=== PATIENT | male | born 1975 | race Caucasian/White ===

== ENCOUNTER 2018-07-27 20:04 | Inpatient (IN) | payer OTHER, SELFPAY ==
--- NOTE | 2018-07-27 20:05 | ED_ITS ---
HPI - General Adult General Chief complaint: Nausea/Vomiting/Diarrhea Stated complaint: Vomiting Time Seen by Provider: 07/27/18 20:05 Source: patient and EMS Mode of arrival: EMS Limitations: no limitations History of Present Illness HPI narrative: Patient is a 43-year-old male. Insulin-dependent type 2 diabetic. Was diagnosed 3 years ago with this. Patient states yesterday he generally started to not feel very well. States that he did have quite a bit of nausea but was able to resist vomiting. He stated that he knew that if he started vomiting at would continue to where he could stop. He states that he has been in DKA 2 times in the past. He stated that this morning he could no longer resist the urge to vomit and started vomiting. States that has continued since then. Has had black colored vomiting. States he does take nonsteroidal anti-inflammatories on a regular basis. No current alcohol use. Patient states that he feels like he is in DKA. Related Data Home Medications Medication Instructions Recorded Confirmed insulin aspart U-100 [Novolog 07/27/18 Flexpen U-100 Insulin] insulin glargine [Lantus Solostar 07/27/18 U-100 Insulin] metformin 1,000 mg PO BID 07/27/18 07/27/18 metoclopramide HCl 20 mg PO QACHS 07/27/18 07/27/18 Allergies Allergy/AdvReac Type Severity Reaction Status Date / Time No Known Drug Allergies Allergy Verified 07/27/18 20:21 Review of Systems Constitutional Denies chills, Reports fatigue, Denies fever(s), Reports headache(s), Denies lethargy, Denies malaise and Reports weakness Eyes Denies blurry vision and Denies diplopia ENT Ears, Nose, Mouth, and Throat: Reports headache(s), Denies disequilibrium, Denies sore throat and Denies throat swelling Cardiovascular Denies chest pain, Reports rapid heart rate, Denies edema, Denies palpitations and Denies dyspnea Respiratory Denies cough, Denies dyspnea and Denies wheezing Gastrointestinal Gastrointestinal: Reports abdominal pain, Denies change in stool character, Denies constipation, Reports dyspepsia, Denies diarrhea, Reports nausea and Reports vomiting Genitourinary Denies dysuria Musculoskeletal Reports myalgias and Denies arthralgias Integumentary/Breasts Denies lesions and Denies rash Neurologic Denies behavioral changes, Denies confusion, Reports headache(s), Denies disequilibrium and Reports weakness Psychiatric Denies behavioral changes and Denies confusion Endocrine Reports fatigue and Denies palpitations Hematologic/Lymphatic Comments: Not on anticoagulation Allergic/Immunologic Denies throat swelling and Denies wheezing PFSH Medical History Diabetes (Acute) Surgical History No pertinent past surgical history (Acute) Social History lives independently: Yes Exam Initial Vital Signs Initial Vital Signs: Vital Signs Temperature 97.0 F L 07/27/18 20:21 Pulse Rate 137 H 07/27/18 20:21 Respiratory Rate 32 H 07/27/18 20:21 Blood Pressure 134/96 H 07/27/18 20:21 Pulse Oximetry 96 07/27/18 20:21 Const General: in distress, diaphoretic and ill appearing Orientation: alert, awake and oriented x3 HENMT Head: normal to inspection and normocephalic Chest Chest: normal inspection of the chest Resp Effort & Inspection: normal respiratory effort Auscultation: clear to auscultation bilaterally Cardio Rate: tachycardic Rhythm: regular rhythm Pulses: radial pulses present GI Inspection: non-distended Palpation: soft, No firm and tender (Diffuse tenderness) Back/Spine/Pelvis Back: No CVA tenderness Skin Lesions: no lesions Rashes: no rashes Neuro General: alert, awake and oriented x3 Cognition: normal cognition Speech: speech normal Motor: muscle tone normal throughout Sensory Exam: no sensory deficits noted Extrem General: normal to inspection, capillary refill normal and No edema Psych Appearance: grossly normal and disheveled Course Orders Ordered: ED Orders 07/27/18 20:23 Complete Blood Count AUTO DIFF Stat Comprehensive Metabolic Panel Stat Ethanol (ETOH) Stat Ketones (Beta-Hydroxybutyrate) Stat Lactate (Lactic Acid) Stat Lipase Stat Magnesium Stat Phosphorous Stat Procalcitonin Stat Type and Screen Stat 07/27/18 20:25 Venous Blood Gas Stat 07/27/18 22:11 CT abdomen pelvis w con Stat 07/27/18 22:14 BMP [Basic Metabolic Panel] Stat Complete Blood Count AUTO DIFF Stat 07/27/18 23:03 Glucose Stat Pantoprazole Sodium 80 mg/ (Sodium Chloride) 100 mls @ 10 mls/hr IV CONT DARSHAN Last Admin: 07/27/18 20:42 Dose: 8 mg/hr, 10 mls/hr Sodium Chloride (Normal Saline 0.9%) 1,000 mls @ 150 mls/hr IV CONT DARSHAN Last Admin: 07/27/18 21:10 Dose: 150 mls/hr Insulin Human Regular 100 unit (/ Sodium Chloride) 100 mls @ 6 mls/hr IV TITRATE DARSHAN; Protocol Last Admin: 07/27/18 23:25 Dose: 3.4 ml/hr, 3.4 mls/hr Titration: 07/27/18 23:25 Dose: 0 mls/hr Titration: 07/27/18 23:03 Dose: 0 mls/hr Admin: 07/27/18 21:31 Dose: 10.2 ml/hr, 10.2 mls/hr Discontinued Medications Hydromorphone HCl (Dilaudid) 0.5 mg IV NOW ONE Stop: 07/27/18 23:04 Last Admin: 07/27/18 23:08 Dose: 0.5 mg Sodium Chloride (Normal Saline 0.9%) 1,000 mls @ 1,000 mls/hr IV BOLUS ONE Stop: 07/27/18 21:06 Last Infusion: 07/27/18 21:30 Dose: 0 mls/hr Admin: 07/27/18 20:31 Dose: 1,000 mls/hr Pantoprazole Sodium 80 mg/ (Sodium Chloride) 100 mls @ 300 mls/hr IV NOW ONE Stop: 07/27/18 20:31 Last Infusion: 07/27/18 21:05 Dose: 0 mls/hr Admin: 07/27/18 20:32 Dose: 300 mls/hr Ibuprofen (Advil) 800 mg PO NOW ONE Stop: 07/27/18 22:41 Last Admin: 07/27/18 22:43 Dose: Morphine Sulfate (Morphine) 4 mg IV NOW ONE Stop: 07/27/18 21:15 Last Admin: 07/27/18 21:24 Dose: 4 mg Ondansetron HCl (Zofran) 4 mg IV NOW ONE Stop: 07/27/18 20:08 Last Admin: 07/27/18 20:32 Dose: 4 mg Vital Signs - 8 hr 07/27/18 20:21 07/27/18 21:05 07/27/18 22:08 Temperature 97.0 F L Pulse Rate 137 H 119 H 138 H Respiratory Rate 32 H 23 18 Blood Pressure 134/96 H Blood Pressure [Right Arm] 133/88 141/74 H Pulse Oximetry 96 96 97 07/27/18 22:30 07/27/18 23:49 Temperature Pulse Rate 144 H 138 H Respiratory Rate 19 20 Blood Pressure Blood Pressure [Right Arm] 157/84 H 126/85 Pulse Oximetry 98 98 Medical Decision Making Lab Data Lab results reviewed: Yes I reviewed the patient's lab results. Result diagrams: 07/27/18 22:14 07/27/18 23:03 Lab Results 07/27/18 07/27/18 07/27/18 Range/Units 20:23 20:23 20:23 WBC 14.9 H (4.5-11.0) X10^3/uL RBC 5.10 (4.5-5.9) X10^6/uL Hgb 15.7 (13.5-17.5) g/dL Hct 47.3 (41-53) % MCV 92.6 (80-100) fL MCH 30.8 (26-34) PG MCHC 33.3 (30-36) % RDW 12.9 (11.6-14.8) % Plt Count 623 H (150-400) X10^3/uL Neut % (Auto) 79.3 H (50-75) % Lymph % (Auto) 15.7 L (25-40) % [place] % (Auto) 4.1 (3-14) % Eos % (Auto) 0.0 L (2-4) % Baso % (Auto) 0.9 (0-2) % Neut # (Auto) 41716 H (0315-0111) /uL VBG pH (7.33-7.43) VBG pCO2 (45-50) mmHg VBG pO2 (35-45) mmHg VBG HCO3 (23-28) mmol/L VBG Total CO2 (24-29) mmol/L VBG O2 Saturation (70-75) % VBG Base Excess (0-4) mmol/L Sodium 134 L (137-145) mmol/L Potassium 5.0 (3.4-5.1) mmol/L Chloride 95 L (98-107) mmol/L Carbon Dioxide < 5 L* (22-32) mmol/L BUN 23 H (9-20) mg/dL Creatinine 0.90 (0.66-1.25) mg/dL Estimated GFR > 60.0 (>60) mL/min BUN/Creatinine Ratio 25.6 H (6-22) Glucose 550 H* (70-100) mg/dL Lactate (0.7-2.1) mmol/L Calcium 9.3 (8.4-10.2) mg/dL Phosphorus 7.8 H (2.5-4.5) mg/dL Magnesium 2.2 (1.6-2.3) mg/dL Total Bilirubin 0.3 (0.2-1.3) mg/dL AST 16 L (17-59) IU/L ALT 13 L (21-72) IU/L Alkaline Phosphatase 107 (38-126) U/L Total Protein 7.2 (6.3-8.2) g/dL Albumin 4.2 (3.5-5.0) g/dL Globulin 3.0 (1.7-4.1) g/dL Albumin/Globulin Ratio 1.4 (1.0-2.8) Lipase 131 (23-300) U/L Procalcitonin 0.10 (<0.5) ng/mL Ethyl Alcohol < 10 mg/dL Ketones 10.15 H (<0.27) mmol/L Blood Type Antibody Screen 07/27/18 07/27/18 07/27/18 Range/Units 20:23 20:23 20:25 WBC (4.5-11.0) X10^3/uL RBC (4.5-5.9) X10^6/uL Hgb (13.5-17.5) g/dL Hct (41-53) % MCV (80-100) fL MCH (26-34) PG MCHC (30-36) % RDW (11.6-14.8) % Plt Count (150-400) X10^3/uL Neut % (Auto) (50-75) % Lymph % (Auto) (25-40) % [place] % (Auto) (3-14) % Eos % (Auto) (2-4) % Baso % (Auto) (0-2) % Neut # (Auto) (0149-6987) /uL VBG pH 7.02 L* (7.33-7.43) VBG pCO2 17.7 L (45-50) mmHg VBG pO2 55 H (35-45) mmHg VBG HCO3 5 L (23-28) mmol/L VBG Total CO2 5 L (24-29) mmol/L VBG O2 Saturation 73 (70-75) % VBG Base Excess -26.0 L (0-4) mmol/L Sodium (137-145) mmol/L Potassium (3.4-5.1) mmol/L Chloride (98-107) mmol/L Carbon Dioxide (22-32) mmol/L BUN (9-20) mg/dL Creatinine (0.66-1.25) mg/dL Estimated GFR (>60) mL/min BUN/Creatinine Ratio (6-22) Glucose (70-100) mg/dL Lactate 3.7 H (0.7-2.1) mmol/L Calcium (8.4-10.2) mg/dL Phosphorus (2.5-4.5) mg/dL Magnesium (1.6-2.3) mg/dL Total Bilirubin (0.2-1.3) mg/dL AST (17-59) IU/L ALT (21-72) IU/L Alkaline Phosphatase (38-126) U/L Total Protein (6.3-8.2) g/dL Albumin (3.5-5.0) g/dL Globulin (1.7-4.1) g/dL Albumin/Globulin Ratio (1.0-2.8) Lipase (23-300) U/L Procalcitonin (<0.5) ng/mL Ethyl Alcohol mg/dL Ketones (<0.27) mmol/L Blood Type A Negative Antibody Screen Negative 07/27/18 07/27/18 07/27/18 Range/Units 22:14 22:14 23:03 WBC 15.1 H (4.5-11.0) X10^3/uL RBC 4.95 (4.5-5.9) X10^6/uL Hgb 15.0 (13.5-17.5) g/dL Hct 45.2 (41-53) % MCV 91.3 (80-100) fL MCH 30.3 (26-34) PG MCHC 33.1 (30-36) % RDW 12.8 (11.6-14.8) % Plt Count 577 H (150-400) X10^3/uL Neut % (Auto) 89.3 H (50-75) % Lymph % (Auto) 6.4 L (25-40) % [place] % (Auto) 3.6 (3-14) % Eos % (Auto) 0.1 L (2-4) % Baso % (Auto) 0.6 (0-2) % Neut # (Auto) 67254 H (4663-7321) /uL VBG pH (7.33-7.43) VBG pCO2 (45-50) mmHg VBG pO2 (35-45) mmHg VBG HCO3 (23-28) mmol/L VBG Total CO2 (24-29) mmol/L VBG O2 Saturation (70-75) % VBG Base Excess (0-4) mmol/L Sodium 136 L (137-145) mmol/L Potassium 5.4 H (3.4-5.1) mmol/L Chloride 100 (98-107) mmol/L Carbon Dioxide 5 L* (22-32) mmol/L BUN 23 H (9-20) mg/dL Creatinine 0.90 (0.66-1.25) mg/dL Estimated GFR > 60.0 (>60) mL/min BUN/Creatinine Ratio 25.6 H (6-22) Glucose 541 H* 305 H D (70-100) mg/dL Lactate (0.7-2.1) mmol/L Calcium 9.1 (8.4-10.2) mg/dL Phosphorus (2.5-4.5) mg/dL Magnesium (1.6-2.3) mg/dL Total Bilirubin (0.2-1.3) mg/dL AST (17-59) IU/L ALT (21-72) IU/L Alkaline Phosphatase (38-126) U/L Total Protein (6.3-8.2) g/dL Albumin (3.5-5.0) g/dL Globulin (1.7-4.1) g/dL Albumin/Globulin Ratio (1.0-2.8) Lipase (23-300) U/L Procalcitonin (<0.5) ng/mL Ethyl Alcohol mg/dL Ketones (<0.27) mmol/L Blood Type Antibody Screen Point of Care Testing Glucose POC 413 Urine Dip Bedside Urine Glucose 1000 mg/dl Bedside Urine Bilirubin - Negative Bedside Urine Ketone +++ 80 Urine Specific [employer] 1.030 Bedside Urine Occult Blood +/- Bedside Urine pH 5.5 Bedside Urine Protein + 30 Bedside Urine Urobilinogen - Negative Bedside Urine Nitrite - Negative Bedside Urine Leukocytes - Negative Esterase Point of care testing: Point of Care Testing Glucose POC 413 Urine Dip Bedside Urine Glucose 1000 mg/dl Bedside Urine Bilirubin - Negative Bedside Urine Ketone +++ 80 Urine Specific [employer] 1.030 Bedside Urine Occult Blood +/- Bedside Urine pH 5.5 Bedside Urine Protein + 30 Bedside Urine Urobilinogen - Negative Bedside Urine Nitrite - Negative Bedside Urine Leukocytes - Negative Esterase Imaging Data CT scan - abdomen: Radiologist's impression: Stomach is somewhat distended with fluid contents this could be due to gastroparesis versus early partial gastric outlet obstruction. Circumferential wall thickening of the distal soft just may be due to esophagitis. Other etiologies not excluded. Follow-up suggested. Nonobstructing bilateral renal calculi a as described. Normal appendix. MDM Narrative Medical decision making narrative: Patient currently in DKA. Upon arrival anion gap 34. Potassium unremarkable. Was started on an insulin drip after an insulin bolus per the DKA protocol at this hospital. Patient has had vomiting of coffee-ground emesis. Protonix was started. I suspect this is secondary to his NSAID use and also his vomiting. Patient's symptoms improved with Zofran. No fevers. Patient given fluids here in the ER. Patient was also acidotic. Did not start a bicarb drip. I discussed the case with Dr. Hernandez with General surgery who states that he would evaluate the patient as an inpatient for his probable upper GI bleed. Repeat labs shows that his glucose was decreasing greater than 100 an hour. The insulin drip was slowed. Will continue to monitor. CT scan was ordered per request of the admitting provider. Shows what appears to be in his situation a gastroparesis. Patient has not vomited since receiving anti nausea medicine here in the ER. Night hospitalist will admit the patient for continued evaluation and treatment. Discussed the admission with the patient who expressed understanding and agreement this plan. Critical Care Time Critical Care Time: Yes Total Critical Care Time: 45 Attestation: The high probability of a clinically significant, sudden or life threatening deterioration of the 45 system(s) required my full and direct attention, intervention and personal management. The aggregate critical care time was 45 minutes. This time is in addition to time spent performing reported procedures but includes the following: [] Data Review and interpretation [] Patient assessment and monitoring of vital signs [] Documentation [] Medication orders and management Discharge Plan Departure Patient Disposition: Admitted As Inpatient Clinical Impression: DKA, type 2, Acute upper GI bleed, Vomiting, Tachycardia, Diabetes Admit Date/Time: 07/28/18 00:01 Admit Provider: Dell Gold
[2018-07-27 20:21] VITALS: BP 134/96; PULSE 137; RESP 32; TEMP 36.1; O2SAT 96
[2018-07-27] MEDS: SODIUM CHLORIDE 0.9% 1,000 ML 1000 ML IV (20:31)
[2018-07-27] MEDS: ONDANSETRON 4 MG/2 ML INJ IV (20:32)
[2018-07-27] MEDS: PANTOPRAZOLE 80 MG in SODIUM CHLORIDE 0.9% 100 ML 300 ML IV (20:32)
[2018-07-27 20:37] LABS: HCO3 VBG 5 mmol/L (23-28); Oxygen Saturation VBG 73 % (70-75); PCO2 VBG 17.7 mmHg (45-50); PO2 VBG 55 mmHg (35-45); Total CO2 VBG 5 mmol/L (24-29)
[2018-07-27 20:38] LABS: pH VBG 7.02 (7.33-7.43)
[2018-07-27] MEDS: PANTOPRAZOLE 80 MG in SODIUM CHLORIDE 0.9% 100 ML 10 ML IV (20:42)
[2018-07-27 20:44] LABS: HEMOLYSIS < 15 (0-50)
[2018-07-27 20:45] LABS: Lactate (Lactic Acid) 3.7 mmol/L (0.7-2.1)
[2018-07-27 20:46] LABS: Basophils Percent Auto 0.9 % (0-2); Platelet Count 623 X10^3/uL (150-400)
[2018-07-27 20:50] LABS: Alanine Aminotransferase 13 IU/L (21-72); Albumin 4.2 g/dL (3.5-5.0); Albumin Globulin Ratio 1.4 (1.0-2.8); Alkaline Phosphatase 107 U/L (38-126); Aspartate Aminotransferase 16 IU/L (17-59); BUN Creatinine Ratio 25.6 (6-22); Bilirubin Total 0.3 mg/dL (0.2-1.3); Blood Urea Nitrogen 23 mg/dL (9-20); Calcium 9.3 mg/dL (8.4-10.2); Chloride 95 mmol/L (98-107); Estimated Glomerular Filt Rate > 60.0 mL/min (>60); Ethanol (ETOH) < 10 mg/dL; Lipase 131 U/L (23-300); Magnesium 2.2 mg/dL (1.6-2.3); Phosphorous 7.8 mg/dL (2.5-4.5); Sodium 134 mmol/L (137-145); Total Protein 7.2 g/dL (6.3-8.2)
[2018-07-27 20:51] LABS: Add Manual Diff / Slide Review NO; Hematocrit 47.3 % (41-53); Hemoglobin 15.7 g/dL (13.5-17.5); Lymphocytes Percent Auto 15.7 % (25-40); Mean Corpuscular HGB Conc 33.3 % (30-36); Mean Corpuscular Hemoglobin 30.8 PG (26-34); Mean Corpuscular Volume 92.6 fL (80-100); Monocytes Percent Auto 4.1 % (3-14); Neutrophils Absolute Auto 11800 /uL (1500-7000); Neutrophils Percent Auto 79.3 % (50-75); Red Cell Distribution Width 12.9 % (11.6-14.8); White Blood Cell Count 14.9 X10^3/uL (4.5-11.0)
[2018-07-27 21:04] LABS: Ketones (Beta-Hydroxybutyrate) 10.15 mmol/L (<0.27)
[2018-07-27 21:05] VITALS: BP 133/88; PULSE 119; RESP 23; O2SAT 96
[2018-07-27 21:06] LABS: Carbon Dioxide < 5 mmol/L (22-32); Glucose 550 mg/dL (70-100)
[2018-07-27] MEDS: SODIUM CHLORIDE 0.9% 1,000 ML 150 ML IV (21:10)
[2018-07-27] MEDS: MORPHINE 4 MG/ML INJ IV (21:24)
[2018-07-27] MEDS: INSULIN REGULAR, HUMAN 100 UNIT in SODIUM CHLORIDE 0.9% 100 ML 10.2 ML IV (21:31)
[2018-07-27 22:08] VITALS: BP 141/74; PULSE 138; RESP 18; O2SAT 97
--- NOTE | 2018-07-27 22:11 | DI.CT.S_ITS ---
PROCEDURE: CT ABDOMEN PELVIS W CON INDICATIONS: Vomiting blood in diabetic keto-acidosis TECHNIQUE: After the administration of intravenous contrast, 5 mm thick sections acquired from the diaphragm to the symphysis. 5 mm coronal and sagittal reformats were acquired. For radiation dose reduction, the following was used: automated exposure control, adjustment of mA and/or kV according to patient size. COMPARISON: None. FINDINGS: Image quality: Excellent. ABDOMEN: Lung bases: Lung bases are clear. Heart size is normal. Mild concentric thickening at the gastroesophageal junction. Solid organs: Liver is normal in size and enhancement. Gallbladder is normal. Biliary system is non dilated. Pancreas enhances normally. Spleen is normal in size and enhancement. No adrenal nodules. Kidneys demonstrate normal size and enhancement, without hydronephrosis. Bilateral renal calculi present with the largest stone in the right kidney measuring 6-7 mm. Peritoneum and bowel: Stomach is distended and filled with air-fluid level. There is mild gastric antral thickening. Bowel loops demonstrate normal wall thickness and caliber. The appendix is normal. No free fluid or air. Nodes and vessels: No retroperitoneal or mesenteric adenopathy by size criteria. Aorta and inferior vena cava are normal in size. Miscellaneous: No ventral hernias. PELVIS: Genitourinary: Bladder wall thickness is normal. Miscellaneous: No inguinal hernias or adenopathy. Bones: No suspicious bony lesions. No vertebral body compression fractures. IMPRESSION: 1. Distended stomach with a large air-fluid level. There is no gastric antral thickening. Differential diagnosis includes gastritis versus gastric outlet obstruction. Recommend clinical correlation. 2. Nephrolithiasis bilaterally with multiple nonobstructive renal stones. 3. Normal appendix. No significant discrepancy with the studio artist radiology preliminary report. Dictated by: Devan Fischer M.D. on 07/28/2018 at 7:54 Approved by: Devan Fischer M.D. on 07/28/2018 at 8:01
[2018-07-27 22:27] LABS: Add Manual Diff / Slide Review NO; Basophils Percent Auto 0.6 % (0-2); Eosinophils Percent Auto 0.1 % (2-4); Hematocrit 45.2 % (41-53); Lymphocytes Percent Auto 6.4 % (25-40); Mean Corpuscular HGB Conc 33.1 % (30-36); Mean Corpuscular Hemoglobin 30.3 PG (26-34); Mean Corpuscular Volume 91.3 fL (80-100); Monocytes Percent Auto 3.6 % (3-14); Neutrophils Absolute Auto 13500 /uL (1500-7000); Neutrophils Percent Auto 89.3 % (50-75); Platelet Count 577 X10^3/uL (150-400); Red Blood Cell Count 4.95 X10^6/uL (4.5-5.9); Red Cell Distribution Width 12.8 % (11.6-14.8); White Blood Cell Count 15.1 X10^3/uL (4.5-11.0)
[2018-07-27 22:30] VITALS: BP 157/84; PULSE 144; RESP 19; O2SAT 98
[2018-07-27 22:31] LABS: BUN Creatinine Ratio 25.6 (6-22); Blood Urea Nitrogen 23 mg/dL (9-20); Calcium 9.1 mg/dL (8.4-10.2); Chloride 100 mmol/L (98-107); Estimated Glomerular Filt Rate > 60.0 mL/min (>60); HEMOLYSIS < 15 (0-50); Sodium 136 mmol/L (137-145)
[2018-07-27 22:44] LABS: Carbon Dioxide 5 mmol/L (22-32); Potassium 5.4 mmol/L (3.4-5.1)
[2018-07-27 22:45] LABS: Glucose 541 mg/dL (70-100)
[2018-07-27] MEDS: HYDROMORPHONE 1 MG INJ 0.5 MG IV (23:08)
[2018-07-27 23:17] LABS: Glucose 305 mg/dL (70-100)
[2018-07-27] MEDS: INSULIN REGULAR, HUMAN 100 UNIT in SODIUM CHLORIDE 0.9% 100 ML IV (23:25)
[2018-07-27 23:49] VITALS: BP 126/85; PULSE 138; RESP 20; O2SAT 98
[2018-07-28] VITALS (18 sets, daily range): BP systolic 89–142; BP diastolic 54–109; PULSE 91–129; RESP 12–20; TEMP 36–36.9; O2SAT 96–100; BMI 18.1
[2018-07-28] MEDS: MAG HYDROX/ALUMINUM/SIMETH SUS 20 ML, LIDOCAINE VISCOUS 2% 15 ML PO (00:10)
[2018-07-28 00:30] LABS: Reflexed Lactate in 2 Hours Y
--- NOTE | 2018-07-28 00:46 | PM.HP.1 ---
History of Present Illness Date Patient Seen: 07/28/18 Time Patient Seen: 00:46 Chief complaint: Vomiting Narrative: The patient is a 43-year-old male with PMH significant for DM 2T (oral anti-glycemic and insulin dependent), recurrent DKAs (x2 in the past 1 year), GERD, HARSHAD (not on CPAP), nephrolithiasis (passed, no surgical intervention), osteoarthritis of b/l knee, CURRENT tobacco dependence, and CURRENT cannabis use. Patient is being admitted for DKA, ketoacidosis, and hematemesis. Patient presented to the ED via EMS arrival on 07/27/2018 at 8:21 p.m. out of concern for nausea, vomiting, and diarrhea. On initial presentation complained of 10/10 abdominal pain and had a 500 ml of coffee-ground emesis. Nausea and vomiting initially started on the morning of 07/27/2018. Patient unable to quantify number of episodes; however, does note at least 10 episodes of combined dry heaving and hematemesis. In the past 2 days has been experiencing intermittent palpitations, positional dizziness/lightheadedness, cramping abdominal pain across upper abdominal quadrants, polydipsia, polyuria, polyphasia, and fatigue. Denies fever/chills, change in vision, blurry vision, chest pain, dyspnea (rest or w/ exertion), abdominal distension, flank pain, hematuria, or blood loss per rectum. Patient does have small bouts of diarrhea, which is chronic (not worse from baselien) and mainly occurs after eating. He is on metformin 1000 mg BID. Reports having heartburn. Patient is a current smoker, 1/2 ppd. He admits to using and overusing ibuprofen, reports taking 400 mg at least thrice daily; however, does take it up to 6 times a day. Patient's use of ibuprofen is precipitated by severe bilateral knee pain. Reports having severe arthritis in both knees; however, he [facility] that he can have surgical intervention after the age of 50. In addition, patient uses marijuana for pain up to 4x per day for the past two years. Patient denies current alcohol use. Also, denies prior history of heavy alcohol use or abuse. No prior history of GIB, colonoscopy or endoscopy. Patient was diagnosed with DM 2T 3 years ago. At that time he attempted to manage diabetic disease for a short duration; however, management of diabetic disease was frustrating and cumbersome for the patient and he seized all pharmacotherapy at that time. Recently, in the past year, patient had 2 other episodes of DKA requiring hospitalization, one in October of 2017 and the other in May of 2018 (hospitalized at [facility]). Patient was started on Lantus 20 units daily and metformin 1000 mg BID in October of 2017 and a sliding scale Novolog in May of 2018. Patient reports adherence with Lantus and metformin; however, has been struggling and missing doses of the NovoLog (re: frequently out and does not have a glucometer or medication with him). Patient reports polydipsia (on an average drinking 1 to 1.5 gallons (6-8L) of water daily), polyuria, and polyphagia. Patient admits to struggling with the diabetic diet, specifically pursuing diet high in bread and pasta. Reports 50 lb weight loss over the past 2 years, currently stable. Patient reports change in vision/blurry vision with hyperglycemia. Has not had an eye exam. Reports having paresthesia of toes. He does not follow with endocrinology. After hospitalization in May, patient did establish himself with the PCP to help with diabetic management, his next appointment is in August. While in route to the ED, received 1L NS bolus. Presenting VS T 97*F, BP 134/96, HR 137, RR 32, SpO2 96% on RA. Home medications include metformin 1000 mg BID, reglan 20 mg TID, Lantus, and Novolog. ED Presentation / Work-Up WBC 14.9, HGB 15.7, HCT 47.3, PLT 623 NA 134, K 5.0, MG 2.2, CL 95, CA 9.3, PO4 7.8 CO2 <5, AG 33.5, lactate 3.7 GLU 550, serum KETONES 10.15 BUN 23, sCR 0.9, BUN:CR 25.6, GFR > 60 T. BILI 0.3, AST 16, ALT 13, ALK PHOS 107, T. PROTEIN 7.2, ALB 4.2, LIPASE 131 PCT 0.1, ETHYL ALCOHOL < 10 UA glucose (1000 mg/dL), urine ketones (+++, 80), urine specific gravity 1.030, urine protein +30 Venous pH 7.02, pCO2 17.7, pO2 55, HCO2 5 CT A/P - revealed circumferential wall thickening of the distal esophagus, may be due to esophagitis - stomach is somewhat distended with fluid contents, HU value of 6, concern for gastroparesis vs. early / partial gastric outlet obstruction - fatty infiltration of liver - non-obstructing bilateral renal calculi In ED received - NS, 1L bolus, followed by 150 ml/hr maintenance infusion - Protonis, 80 mg IV bolus, followed by a Pronix drip - Insulin, titrating as clinically indicated Patient History Medical History Diabetes (Acute) Surgical History No pertinent past surgical history (Acute) Family & Social History Family History: Reviewed 07/28/18 by OG Lyons Social History: lives independently Yes Smokes 1/2 ppd. Started smoking at age 11. Most smoked 1pp. No regular or heavy h/o alcohol use Smokers marijuana since 2015, upto 4x per day. Meds Home Medications Medication Instructions Recorded Confirmed Type insulin aspart U-100 [Novolog 07/27/18 History Flexpen U-100 Insulin] insulin glargine [Lantus Solostar 07/27/18 History U-100 Insulin] metformin 1,000 mg PO BID 07/27/18 07/27/18 History metoclopramide HCl 20 mg PO QACHS 07/27/18 07/27/18 History ibuprofen 400 mg PO Q4-6H PRN 07/28/18 07/28/18 History Allergies Allergy/AdvReac Type Severity Reaction Status Date / Time No Known Drug Allergies Allergy Verified 07/27/18 20:21 Review of Systems Review of Systems All systems reviewed & are unremarkable except as noted in HPI and below Exam Vital Signs (past 8 hours): - 07/27/18 20:21 07/27/18 21:05 07/27/18 22:08 Temperature 97.0 F L Pulse Rate 137 H 119 H 138 H Respiratory Rate 32 H 23 18 Blood Pressure 134/96 H Blood Pressure [Right Arm] 133/88 141/74 H Pulse Oximetry 96 96 97 07/27/18 22:30 07/27/18 23:49 07/28/18 00:10 Temperature Pulse Rate 144 H 138 H 129 H Respiratory Rate 19 20 18 Blood Pressure 142/109 H Blood Pressure [Right Arm] 157/84 H 126/85 Pulse Oximetry 98 98 98 Oxygen Delivery Method Room Air Narrative Exam Narrative: Constitutional: c/o bilateral knee pain, thin male - BMI 18.1 Neurologic: AOx3, no focal neurological deficits Head: NC, AT Eyes: PERRL, EOMI Ears: external ears normal, no otorrhea Nose: external nose normal, no rhinorrhea or epistaxis Throat: dry MM, oropharynx w/o exudate Neck: no masses, lymphadenopathy, or JVD Chest / Respiratory: equal chest rise, unlabored respiratory effort, no tachypnea, CTA in RUL and EDIL / diminshed RML, RLL, and LLL Heart / CV: S1S2, no murmur Abdomen / GI: round, NT, ND, + BS, no organomegaly : no suprapubic tenderness, no CVA Peripheral / Vascular: warm to touch, distal pulses palpable, no edema, sensation intact bilateral knees unremarkable for effusion Musc: full ROM of upper and lower extremities, adequate muscle tone and bulk Skin: no ecchymosis or suspicious lesions / ulcers Objective Labs Result Diagrams: 07/28/18 02:04 07/28/18 06:03 Labs: Laboratory Results - last 24 hr 07/27/18 07/27/18 07/27/18 20:23 20:23 20:23 WBC 14.9 H RBC 5.10 Hgb 15.7 Hct 47.3 MCV 92.6 MCH 30.8 MCHC 33.3 RDW 12.9 Plt Count 623 H Neut % (Auto) 79.3 H Lymph % (Auto) 15.7 L [place] % (Auto) 4.1 Eos % (Auto) 0.0 L Baso % (Auto) 0.9 Neut # (Auto) 72862 H VBG pH VBG pCO2 VBG pO2 VBG HCO3 VBG Total CO2 VBG O2 Saturation VBG Base Excess Sodium 134 L Potassium 5.0 Chloride 95 L Carbon Dioxide < 5 L* BUN 23 H Creatinine 0.90 Estimated GFR > 60.0 BUN/Creatinine Ratio 25.6 H Glucose 550 H* Lactate Calcium 9.3 Phosphorus 7.8 H Magnesium 2.2 Total Bilirubin 0.3 AST 16 L ALT 13 L Alkaline Phosphatase 107 Total Protein 7.2 Albumin 4.2 Globulin 3.0 Albumin/Globulin Ratio 1.4 Lipase 131 Procalcitonin 0.10 Ethyl Alcohol < 10 Ketones 10.15 H Blood Type Antibody Screen 07/27/18 07/27/18 07/27/18 20:23 20:23 20:25 WBC RBC Hgb Hct MCV MCH MCHC RDW Plt Count Neut % (Auto) Lymph % (Auto) [place] % (Auto) Eos % (Auto) Baso % (Auto) Neut # (Auto) VBG pH 7.02 L* VBG pCO2 17.7 L VBG pO2 55 H VBG HCO3 5 L VBG Total CO2 5 L VBG O2 Saturation 73 VBG Base Excess -26.0 L Sodium Potassium Chloride Carbon Dioxide BUN Creatinine Estimated GFR BUN/Creatinine Ratio Glucose Lactate 3.7 H Calcium Phosphorus Magnesium Total Bilirubin AST ALT Alkaline Phosphatase Total Protein Albumin Globulin Albumin/Globulin Ratio Lipase Procalcitonin Ethyl Alcohol Ketones Blood Type A Negative Antibody Screen Negative 07/27/18 07/27/18 07/27/18 22:14 22:14 23:03 WBC 15.1 H RBC 4.95 Hgb 15.0 Hct 45.2 MCV 91.3 MCH 30.3 MCHC 33.1 RDW 12.8 Plt Count 577 H Neut % (Auto) 89.3 H Lymph % (Auto) 6.4 L [place] % (Auto) 3.6 Eos % (Auto) 0.1 L Baso % (Auto) 0.6 Neut # (Auto) 38648 H VBG pH VBG pCO2 VBG pO2 VBG HCO3 VBG Total CO2 VBG O2 Saturation VBG Base Excess Sodium 136 L Potassium 5.4 H Chloride 100 Carbon Dioxide 5 L* BUN 23 H Creatinine 0.90 Estimated GFR > 60.0 BUN/Creatinine Ratio 25.6 H Glucose 541 H* 305 H D Lactate Calcium 9.1 Phosphorus Magnesium Total Bilirubin AST ALT Alkaline Phosphatase Total Protein Albumin Globulin Albumin/Globulin Ratio Lipase Procalcitonin Ethyl Alcohol Ketones Blood Type Antibody Screen Assessment & Plan Plan: Assessment/Plan Narrative: DKA in DM 2T - Admit to ICU - Continue insulin drip - Aggressive fluid resuscitation w/ NS at 150 ml/hr; change to D5 1/2 NS at 150 ml/hr once glucose is less than 250 - Maintain IV fluids and insulin drip until acidosis has resolved - Serial renal fx panel and magnesium Q4H x4 starting at 0200m, then daily BMP, Mg - Strict I/O, daily weight - Trend lactate until normal Acute Upper GIB Daily high dose of ibuprofen use for many years for osteoarthritic knee pain. Hematemesis, multiple episodes since am of 07/27/18. Hgb stable. No h/o alcohol use. Current tobacco and cannibis dependence. - Consult general surgery for endoscopy, re: hematemesis / GIB, questionable SBO contacted by ED (Dr. 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 Have discussed an option of an insulin pump with the patient as it may help with logistical problems patient is experiencing in regard to diabetic management. I have discussed with the patient long-term consequences of poorly controlled diabetes including neuropathy, nephropathy, retinopathy, diabetic foot ulcers, and peripheral vascular changes. Intractable nausea and vomiting - NPO, ice chips ok - Anti-emetics prn (zofran) - IVF - Trend e-lytes and correct deficiencies as clinically indicated Osteoarthritis of B/L Knee - No NSAIDs - Lidocaine patch, Voltaren Gel, and Tylenol #3 Generalized myopathy / muscle hypersensitivity Potentially a sequela of uncontrolled diabetes, chronic inflammatory state, hypovolemia Nephrolithiasis, bilateral, non-obstructing Asymptomatic. H/O nephrolithiasis, ?many years ago,? passed on his own, no surgical intervention. Moderate to high risk for obstruction. No flank pain, no fever. + WBC and lactate. No fever. - no need for empiric therapy at this time, unless leukocytosis persist once DKA resolved or there is new onset a febrile state Tobacco Dependence, smoking cessation encouraged, nicotine patch Cannabis Dependence, cessation encouraged Patient wishes to be a full code. No formal health directive. Unable to designate a surrogate decision maker at this time. Home medications reviewed and reconciled. Over 60 minutes of [id number] time with patient obtaining h/p and discussing plan of care
--- NOTE | 2018-07-28 00:59 | P.HP_ITS ---
History of Present Illness Date Patient Seen: 07/28/18 Time Patient Seen: 00:46 Chief complaint: Vomiting Narrative: The patient is a 43-year-old male with PMH significant for DM 2T (oral anti-glycemic and insulin dependent), recurrent DKAs (x2 in the past 1 year), GERD, HARSHAD (not on CPAP), nephrolithiasis (passed, no surgical intervention), osteoarthritis of b/l knee, CURRENT tobacco dependence, and CURRENT cannabis use. Patient is being admitted for DKA, ketoacidosis, and hematemesis. Patient presented to the ED via EMS arrival on 07/27/2018 at 8:21 p.m. out of concern for nausea, vomiting, and diarrhea. On initial presentation complained of 10/10 abdominal pain and had a 500 ml of coffee-ground emesis. Nausea and vomiting initially started on the morning of 07/27/2018. Patient unable to quantify number of episodes; however, does note at least 10 episodes of combined dry heaving and hematemesis. In the past 2 days has been experiencing intermittent palpitations, positional dizziness/lightheadedness, cramping abdominal pain across upper abdominal quadrants, polydipsia, polyuria, polyphasia, and fatigue. Denies fever/chills, change in vision, blurry vision, chest pain, dyspnea (rest or w/ exertion), abdominal distension, flank pain, hematuria, or blood loss per rectum. Patient does have small bouts of diarrhea , which is chronic (not worse from baselien) and mainly occurs after eating. He is on metformin 1000 mg BID. Reports having heartburn. Patient is a current smoker, 1/2 ppd. He admits to using and overusing ibuprofen, reports taking 400 mg at least thrice daily; however, does take it up to 6 times a day. Patient's use of ibuprofen is precipitated by severe bilateral knee pain. Reports having severe arthritis in both knees; however, he [facility] that he can have surgical intervention after the age of 50. In addition, patient uses marijuana for pain up to 4x per day for the past two years. Patient denies current alcohol use. Also, denies prior history of heavy alcohol use or abuse. No prior history of GIB, colonoscopy or endoscopy. Patient was diagnosed with DM 2T 3 years ago. At that time he attempted to manage diabetic disease for a short duration; however, management of diabetic disease was frustrating and cumbersome for the patient and he seized all pharmacotherapy at that time. Recently, in the past year, patient had 2 other episodes of DKA requiring hospitalization, one in October of 2017 and the other in May of 2018 (hospitalized at [facility]). Patient was started on Lantus 20 units daily and metformin 1000 mg BID in October of 2017 and a sliding scale Novolog in May of 2018. Patient reports adherence with Lantus and metformin; however, has been struggling and missing doses of the NovoLog (re: frequently out and does not have a glucometer or medication with him). Patient reports polydipsia (on an average drinking 1 to 1.5 gallons (6-8L ) of water daily), polyuria, and polyphagia. Patient admits to struggling with the diabetic diet, specifically pursuing diet high in bread and pasta. Reports 50 lb weight loss over the past 2 years, currently stable. Patient reports change in vision/blurry vision with hyperglycemia. Has not had an eye exam. Reports having paresthesia of toes. He does not follow with endocrinology. After hospitalization in May, patient did establish himself with the PCP to help with diabetic management, his next appointment is in August. While in route to the ED, received 1L NS bolus. Presenting VS T 97*F, BP 134/96 , HR 137, RR 32, SpO2 96% on RA. Home medications include metformin 1000 mg BID , reglan 20 mg TID, Lantus, and Novolog. ED Presentation / Work-Up WBC 14.9, HGB 15.7, HCT 47.3, PLT 623 NA 134, K 5.0, MG 2.2, CL 95, CA 9.3, PO4 7.8 CO2 <5, AG 33.5, lactate 3.7 GLU 550, serum KETONES 10.15 BUN 23, sCR 0.9, BUN:CR 25.6, GFR > 60 T. BILI 0.3, AST 16, ALT 13, ALK PHOS 107, T. PROTEIN 7.2, ALB 4.2, LIPASE 131 PCT 0.1, ETHYL ALCOHOL < 10 UA glucose (1000 mg/dL), urine ketones (+++, 80), urine specific gravity 1.030, urine protein +30 Venous pH 7.02, pCO2 17.7, pO2 55, HCO2 5 CT A/P - revealed circumferential wall thickening of the distal esophagus, may be due to esophagitis - stomach is somewhat distended with fluid contents, HU value of 6, concern for gastroparesis vs. early / partial gastric outlet obstruction - fatty infiltration of liver - non-obstructing bilateral renal calculi In ED received - NS, 1L bolus, followed by 150 ml/hr maintenance infusion - Protonis, 80 mg IV bolus, followed by a Pronix drip - Insulin, titrating as clinically indicated Patient History Medical History Diabetes (Acute) Surgical History No pertinent past surgical history (Acute) Family & Social History Family History: Reviewed 07/28/18 by OG Lyons Social History: lives independently Yes Smokes 1/2 ppd. Started smoking at age 11. Most smoked 1pp. No regular or heavy h/o alcohol use Smokers marijuana since 2015, upto 4x per day. Meds Home Medications Medication Instructions Recorded Confirmed Type insulin aspart U-100 [Novolog 07/27/18 History Flexpen U-100 Insulin] insulin glargine [Lantus Solostar 07/27/18 History U-100 Insulin] metformin 1,000 mg PO BID 07/27/18 07/27/18 History metoclopramide HCl 20 mg PO QACHS 07/27/18 07/27/18 History ibuprofen 400 mg PO Q4-6H PRN 07/28/18 07/28/18 History Allergies Allergy/AdvReac Type Severity Reaction Status Date / Time No Known Drug Allergies Allergy Verified 07/27/18 20:21 Review of Systems Review of Systems All systems reviewed & are unremarkable except as noted in HPI and below Exam Vital Signs (past 8 hours): - 07/27/18 20:21 07/27/18 21:05 07/27/18 22:08 Temperature 97.0 F L Pulse Rate 137 H 119 H 138 H Respiratory Rate 32 H 23 18 Blood Pressure 134/96 H Blood Pressure [Right Arm] 133/88 141/74 H Pulse Oximetry 96 96 97 07/27/18 22:30 07/27/18 23:49 07/28/18 00:10 Temperature Pulse Rate 144 H 138 H 129 H Respiratory Rate 19 20 18 Blood Pressure 142/109 H Blood Pressure [Right Arm] 157/84 H 126/85 Pulse Oximetry 98 98 98 Oxygen Delivery Method Room Air Narrative Exam Narrative: Constitutional: c/o bilateral knee pain, thin male - BMI 18.1 Neurologic: AOx3, no focal neurological deficits Head: NC, AT Eyes: PERRL, EOMI Ears: external ears normal, no otorrhea Nose: external nose normal, no rhinorrhea or epistaxis Throat: dry MM, oropharynx w/o exudate Neck: no masses, lymphadenopathy, or JVD Chest / Respiratory: equal chest rise, unlabored respiratory effort, no tachypnea, CTA in RUL and EDIL / diminshed RML, RLL, and LLL Heart / CV: S1S2, no murmur Abdomen / GI: round, NT, ND, + BS, no organomegaly : no suprapubic tenderness, no CVA Peripheral / Vascular: warm to touch, distal pulses palpable, no edema, sensation intact bilateral knees unremarkable for effusion Musc: full ROM of upper and lower extremities, adequate muscle tone and bulk Skin: no ecchymosis or suspicious lesions / ulcers Objective Labs Result Diagrams: 07/28/18 02:04 07/28/18 06:03 Labs: Laboratory Results - last 24 hr 07/27/18 07/27/18 07/27/18 20:23 20:23 20:23 WBC 14.9 H RBC 5.10 Hgb 15.7 Hct 47.3 MCV 92.6 MCH 30.8 MCHC 33.3 RDW 12.9 Plt Count 623 H Neut % (Auto) 79.3 H Lymph % (Auto) 15.7 L Harrison % (Auto) 4.1 Eos % (Auto) 0.0 L Baso % (Auto) 0.9 Neut # (Auto) 23228 H VBG pH VBG pCO2 VBG pO2 VBG HCO3 VBG Total CO2 VBG O2 Saturation VBG Base Excess Sodium 134 L Potassium 5.0 Chloride 95 L Carbon Dioxide < 5 L* BUN 23 H Creatinine 0.90 Estimated GFR > 60.0 BUN/Creatinine Ratio 25.6 H Glucose 550 H* Lactate Calcium 9.3 Phosphorus 7.8 H Magnesium 2.2 Total Bilirubin 0.3 AST 16 L ALT 13 L Alkaline Phosphatase 107 Total Protein 7.2 Albumin 4.2 Globulin 3.0 Albumin/Globulin Ratio 1.4 Lipase 131 Procalcitonin 0.10 Ethyl Alcohol < 10 Ketones 10.15 H Blood Type Antibody Screen 07/27/18 07/27/18 07/27/18 20:23 20:23 20:25 WBC RBC Hgb Hct MCV MCH MCHC RDW Plt Count Neut % (Auto) Lymph % (Auto) Harrison % (Auto) Eos % (Auto) Baso % (Auto) Neut # (Auto) VBG pH 7.02 L* VBG pCO2 17.7 L VBG pO2 55 H VBG HCO3 5 L VBG Total CO2 5 L VBG O2 Saturation 73 VBG Base Excess -26.0 L Sodium Potassium Chloride Carbon Dioxide BUN Creatinine Estimated GFR BUN/Creatinine Ratio Glucose Lactate 3.7 H Calcium Phosphorus Magnesium Total Bilirubin AST ALT Alkaline Phosphatase Total Protein Albumin Globulin Albumin/Globulin Ratio Lipase Procalcitonin Ethyl Alcohol Ketones Blood Type A Negative Antibody Screen Negative 07/27/18 07/27/18 07/27/18 22:14 22:14 23:03 WBC 15.1 H RBC 4.95 Hgb 15.0 Hct 45.2 MCV 91.3 MCH 30.3 MCHC 33.1 RDW 12.8 Plt Count 577 H Neut % (Auto) 89.3 H Lymph % (Auto) 6.4 L Harrison % (Auto) 3.6 Eos % (Auto) 0.1 L Baso % (Auto) 0.6 Neut # (Auto) 79284 H VBG pH VBG pCO2 VBG pO2 VBG HCO3 VBG Total CO2 VBG O2 Saturation VBG Base Excess Sodium 136 L Potassium 5.4 H Chloride 100 Carbon Dioxide 5 L* BUN 23 H Creatinine 0.90 Estimated GFR > 60.0 BUN/Creatinine Ratio 25.6 H Glucose 541 H* 305 H D Lactate Calcium 9.1 Phosphorus Magnesium Total Bilirubin AST ALT Alkaline Phosphatase Total Protein Albumin Globulin Albumin/Globulin Ratio Lipase Procalcitonin Ethyl Alcohol Ketones Blood Type Antibody Screen Assessment & Plan Plan: Assessment/Plan Narrative: DKA in DM 2T - Admit to ICU - Continue insulin drip - Aggressive fluid resuscitation w/ NS at 150 ml/hr; change to D5 1/2 NS at 150 ml/hr once glucose is less than 250 - Maintain IV fluids and insulin drip until acidosis has resolved - Serial renal fx panel and magnesium Q4H x4 starting at 0200m, then daily BMP, Mg - Strict I/O, daily weight - Trend lactate until normal Acute Upper GIB Daily high dose of ibuprofen use for many years for osteoarthritic knee pain. Hematemesis, multiple episodes since am of 07/27/18. Hgb stable. No h/o alcohol use. Current tobacco and cannibis dependence. - Consult general surgery for endoscopy, re: hematemesis / GIB, questionable SBO contacted by ED (Dr. 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 - A1C - Holding HEAD WAITER/WAITRESS BANQUET meds, currently on insulin gtt - Transition to SQ long-acting and short acting regimen w/ resolution of acidosis - Consult radiotelegraphist, re: diabetes education AND diabetic diet education - new onset, complication of gastroparesis, on Reglan 10 mg QID - patient was encouraged to seek help from endocrinology in regard to diabetic management. Have discussed an option of an insulin pump with the patient as it may help with logistical problems patient is experiencing in regard to diabetic management. I have discussed with the patient long-term consequences of poorly controlled diabetes including neuropathy, nephropathy, retinopathy, diabetic foot ulcers, and peripheral vascular changes. Intractable nausea and vomiting - NPO, ice chips ok - Anti-emetics prn (zofran) - IVF - Trend e-lytes and correct deficiencies as clinically indicated Osteoarthritis of B/L Knee - No NSAIDs - Lidocaine patch, Voltaren Gel, and Tylenol #3 Generalized myopathy / muscle hypersensitivity Potentially a sequela of uncontrolled diabetes, chronic inflammatory state, hypovolemia Nephrolithiasis, bilateral, non-obstructing Asymptomatic. H/O nephrolithiasis, ?many years ago,? passed on his own, no surgical intervention. Moderate to high risk for obstruction. No flank pain, no fever. + WBC and lactate. No fever. - no need for empiric therapy at this time, unless leukocytosis persist once DKA resolved or there is new onset a febrile state Tobacco Dependence, smoking cessation encouraged, nicotine patch Cannabis Dependence, cessation encouraged Patient wishes to be a full code. No formal health directive. Unable to designate a surrogate decision maker at this time. Home medications reviewed and reconciled. Over 60 minutes of [id number] time with patient obtaining h/p and discussing plan of care
[2018-07-28] MEDS: fentaNYL 100 MCG/2 ML INJ 25 MCG IV ×3 (01:05→20:34)
[2018-07-28 01:19] LABS: Lactate 2HR (Lactic Acid Rflx) 2.3 mmol/L (0.7-2.1)
--- NOTE | 2018-07-28 01:28 | PC.ADMIT ---
Addendum entered by Bridgette Miller R.N. 07/28/18 03:25: CBG 206. Per orders insulin GTT decreased to 2 units/hour and IVF changed to D5 1/2NS @ 150 mL/hour. HR improved to low 100's. Corrected Anion Gap: 21. Original Note: Addendum entered by Bridgette Miller R.N. 07/28/18 02:16: 0200 CBG 235, per Leslie FOLEY keep IVF and insulin GTT rate the same. Original Note: [address] Admission Note: The patient,Jose Lim,43 y/o, was given written information regarding hospital policies, unit procedures and contact persons. Patient's smoking status: Current some day smoker. Vital Signs - 8 hr 07/27/18 20:21 07/27/18 21:05 07/27/18 22:08 Temperature 97.0 F L Pulse Rate 137 H 119 H 138 H Respiratory Rate 32 H 23 18 Blood Pressure 134/96 H Blood Pressure [Right Arm] 133/88 141/74 H Pulse Oximetry 96 96 97 07/27/18 22:30 07/27/18 23:49 07/28/18 00:10 Temperature Pulse Rate 144 H 138 H 129 H Respiratory Rate 19 20 18 Blood Pressure 142/109 H Blood Pressure [Right Arm] 157/84 H 126/85 Pulse Oximetry 98 98 98 07/28/18 01:02 Temperature 96.8 F L Pulse Rate 128 H Respiratory Rate 20 Blood Pressure 122/83 Blood Pressure [Right Arm] Pulse Oximetry 99 Pt arrived to room 103 via stretcher. A/O X 3 in NAD. Able to ambulate from stretcher to bed without difficulty. Able to answer questions appropriately. Insulin and protonix GTTs infusing per orders. Leslie FOLEY at bedside to eval. 0100 CBG 296, verbal orders to disregard the DKA protocol and keep pt insuling GTT infusing at current rate. Will re-eval with 0200 lab results. Pt oriented to room, call light and plan of care. Will monitor.
[2018-07-28 02:17] LABS: Add Manual Diff / Slide Review NO; Basophils Percent Auto 0.3 % (0-2); Hematocrit 40.1 % (41-53); Hemoglobin 13.9 g/dL (13.5-17.5); Lymphocytes Percent Auto 12.2 % (25-40); Mean Corpuscular HGB Conc 34.7 % (30-36); Mean Corpuscular Volume 86.2 fL (80-100); Neutrophils Absolute Auto 12600 /uL (1500-7000); Neutrophils Percent Auto 78.5 % (50-75); Platelet Count 505 X10^3/uL (150-400); Red Blood Cell Count 4.65 X10^6/uL (4.5-5.9); Red Cell Distribution Width 12.9 % (11.6-14.8)
[2018-07-28] MEDS: BACLOFEN 10 MG TABLET 5 MG PO ×2 (02:20→09:16)
[2018-07-28 02:22] LABS: Albumin 3.6 g/dL (3.5-5.0); BUN Creatinine Ratio 31.3 (6-22); Blood Urea Nitrogen 25 mg/dL (9-20); Calcium 8.7 mg/dL (8.4-10.2); Carbon Dioxide 11 mmol/L (22-32); Chloride 104 mmol/L (98-107); Estimated Glomerular Filt Rate > 60.0 mL/min (>60); Glucose 264 mg/dL (70-100); HEMOLYSIS < 15 (0-50); Phosphorous 3.1 mg/dL (2.5-4.5); Potassium 4.4 mmol/L (3.4-5.1); Sodium 135 mmol/L (137-145)
[2018-07-28 02:31] LABS: Magnesium 2.2 mg/dL (1.6-2.3)
[2018-07-28 02:36] LABS: Hemoglobin A1C% w Est Avg Glu 11.8 % (4.0-6.0)
[2018-07-28] MEDS: DEXTROSE 5%-0.45% NS 1,000 ML 150 ML IV ×2 (03:05→10:52)
[2018-07-28] MEDS: CODEINE/ACETAMINOPHEN 30/300 TABLET 1 TAB PO (03:20)
[2018-07-28] MEDS: METOCLOPRAMIDE 10 MG/2 ML INJ 5 MG IV (05:04)
[2018-07-28] MEDS: ONDANSETRON 4 MG/2 ML INJ IV ×4 (05:04→20:26)
[2018-07-28 06:26] LABS: BUN Creatinine Ratio 36.7 (6-22); Blood Urea Nitrogen 22 mg/dL (9-20); Calcium 8.2 mg/dL (8.4-10.2); Carbon Dioxide 16 mmol/L (22-32); Chloride 103 mmol/L (98-107); Estimated Glomerular Filt Rate > 60.0 mL/min (>60); Glucose 243 mg/dL (70-100); HEMOLYSIS < 15 (0-50); Magnesium 2.1 mg/dL (1.6-2.3); Phosphorous 2.2 mg/dL (2.5-4.5); Potassium 4.5 mmol/L (3.4-5.1); Sodium 131 mmol/L (137-145)
[2018-07-28] MEDS: LIDOCAINE PATCH 1 EACH ADH..PATCH 4 EACH TOP (09:16)
[2018-07-28] MEDS: LORazepam 2 MG/ML SYRINGE 1 MG IV (09:30)
--- NOTE | 2018-07-28 10:01 | PC.NURSE ---
pt reporting throat pain due to vomiting and upper abd tenderness. pt with dry heaves. Dr. Harvey notified. zofran and Ativan IV given. IVF 150ml/hr. Insulin gtt at 1.5units/hr and protonix gtt infusing.
[2018-07-28] MEDS: PANTOPRAZOLE 80 MG in SODIUM CHLORIDE 0.9% 100 ML 10 ML IV ×2 (10:53→20:34)
[2018-07-28 11:34] LABS: Blood Urea Nitrogen 18 mg/dL (9-20); Calcium 8.1 mg/dL (8.4-10.2); Carbon Dioxide 19 mmol/L (22-32); Chloride 103 mmol/L (98-107); Estimated Glomerular Filt Rate > 60.0 mL/min (>60); Glucose 239 mg/dL (70-100); HEMOLYSIS < 15 (0-50); Magnesium 2.1 mg/dL (1.6-2.3); Phosphorous 2.4 mg/dL (2.5-4.5); Potassium 4.1 mmol/L (3.4-5.1); Sodium 133 mmol/L (137-145)
[2018-07-28 12:04] LABS: Add Manual Diff / Slide Review NO; Basophils Percent Auto 0.2 % (0-2); Eosinophils Percent Auto 0.5 % (2-4); Hematocrit 33.4 % (41-53); Lymphocytes Percent Auto 22.3 % (25-40); Mean Corpuscular HGB Conc 36.1 % (30-36); Mean Corpuscular Hemoglobin 30.4 PG (26-34); Mean Corpuscular Volume 84.3 fL (80-100); Monocytes Percent Auto 9.3 % (3-14); Neutrophils Absolute Auto 6300 /uL (1500-7000); Neutrophils Percent Auto 67.7 % (50-75); Platelet Count 461 X10^3/uL (150-400); Red Blood Cell Count 3.96 X10^6/uL (4.5-5.9); Red Cell Distribution Width 12.6 % (11.6-14.8); White Blood Cell Count 9.4 X10^3/uL (4.5-11.0)
[2018-07-28 12:31] LABS: Albumin 2.8 g/dL (3.5-5.0); Blood Urea Nitrogen 18 mg/dL (9-20); Calcium 8.2 mg/dL (8.4-10.2); Carbon Dioxide 18 mmol/L (22-32); Chloride 104 mmol/L (98-107); Estimated Glomerular Filt Rate > 60.0 mL/min (>60); Glucose 243 mg/dL (70-100); HEMOLYSIS < 15 (0-50); Phosphorous 2.4 mg/dL (2.5-4.5); Potassium 4.2 mmol/L (3.4-5.1); Sodium 132 mmol/L (137-145)
[2018-07-28] MEDS: INSULIN GLARGINE 100 UNIT/ML 3ML PEN 10 UNIT SUBCUT ×2 (13:22→22:28)
[2018-07-28] MEDS: INSULIN ASPART 100 UNIT/ML INSULN PEN SUBCUT ×2 (13:55→18:50)
[2018-07-28] MEDS: POTASSIUM PHOSPHATE 15 MMOL in DEXTROSE 5% IN WATER 250 ML 63.75 ML IV (15:58)
[2018-07-28] MEDS: SODIUM CHLORIDE 0.9% 1,000 ML 150 ML IV (15:59)
[2018-07-28] MEDS: LIDOCAINE VISCOUS 2% 10 ML, MAG HYDROX/ALUMINUM/SIMETH SUS 10 ML, NYSTATIN SUSP 1,000,0... MM ×2 (15:59→22:24)
[2018-07-28 16:51] LABS: BUN Creatinine Ratio 37.5 (6-22); Blood Urea Nitrogen 15 mg/dL (9-20); Calcium 8.5 mg/dL (8.4-10.2); Carbon Dioxide 18 mmol/L (22-32); Chloride 103 mmol/L (98-107); Estimated Glomerular Filt Rate > 60.0 mL/min (>60); Glucose 216 mg/dL (70-100); HEMOLYSIS < 15 (0-50); Potassium 4.2 mmol/L (3.4-5.1); Sodium 133 mmol/L (137-145)
[2018-07-28 17:29] LABS: Albumin 2.9 g/dL (3.5-5.0); Blood Urea Nitrogen 14 mg/dL (9-20); Calcium 8.4 mg/dL (8.4-10.2); Carbon Dioxide 19 mmol/L (22-32); Chloride 105 mmol/L (98-107); Estimated Glomerular Filt Rate > 60.0 mL/min (>60); Glucose 222 mg/dL (70-100); HEMOLYSIS < 15 (0-50); Magnesium 2.2 mg/dL (1.6-2.3); Phosphorous 2.3 mg/dL (2.5-4.5); Sodium 133 mmol/L (137-145)
--- NOTE | 2018-07-28 18:09 | P.CONS_ITS ---
History of Present Illness Date Patient Seen: 07/28/18 Time Patient Seen: 18:07 Chief complaint: Vomiting Reason for consult: upper gi bleed Requesting provider: Real James Narrative: The patient is a gentleman who was admitted through the night in diabetic ketoacidosis. Profound acidosis with pH of 7.02. He has been treated throughout the day with an insulin drip which was recently stopped. He is more alert. He had some coffee-ground emesis yesterday/in ER. None since admission is reported by nursing. He has had no bloody or black bowel movements since admission to the best that I can determine. He does take nonsteroidal anti- inflammatory agents daily for pain in his knees. He had a similar occurrence the last time he was admitted in DKA. Been taking nonsteroidals for his knees at that time as well. [facility] Medical History Diabetes (Acute) Surgical History No pertinent past surgical history (Acute) Family History Mother No known health problems Father No known health problems Social History household members: significant other lives independently: Yes Smoking Status: Current some day smoker alcohol intake: current Comment: He reach does not drink very much. Meds Home Medications Medication Instructions Recorded Confirmed Type insulin aspart U-100 [Novolog 07/27/18 History Flexpen U-100 Insulin] insulin glargine [Lantus Solostar 07/27/18 History U-100 Insulin] metformin 1,000 mg PO BID 07/27/18 07/27/18 History metoclopramide HCl 20 mg PO QACHS 07/27/18 07/27/18 History ibuprofen 400 mg PO Q4-6H PRN 07/28/18 07/28/18 History Allergies Allergy/AdvReac Type Severity Reaction Status Date / Time No Known Drug Allergies Allergy Verified 07/27/18 20:21 Review of Systems Review of Systems Patient denies pain is eyes he has a sore throat. No tooth aches. No cough or breathing issues at this time. No chest pain or heart problems. No black or bloody bowel movements. No dysuria or hematuria. Exam Vital Signs (past 8 hours): - 07/28/18 12:00 07/28/18 13:00 07/28/18 16:21 Temperature 97.0 F L 97.8 F 97.6 F Pulse Rate 96 H 95 H 96 H Respiratory Rate 14 16 14 Blood Pressure 96/61 107/63 120/80 Pulse Oximetry 99 96 97 07/28/18 17:11 Temperature Pulse Rate 99 H Respiratory Rate 14 Blood Pressure 118/79 Pulse Oximetry 96 Oxygen Delivery Method Room Air Oxygen Flow Rate 0 Narrative Exam Narrative: Then gentleman in no apparent distress. Quite hirsute. Eyes are nonicteric. Conjunctivae are slightly pale. Oral mucosa is dry no open lesions. Teeth are intact. Lungs are clear to auscultation without rales or rhonchi. Heart regular rate and rhythm without murmur gallop. Abdomen is scaphoid with very little abdominal wall musculature. There is no mass or hernia but he has some slight tenderness diffusely. Patient is alert and oriented. Affect is flat. Speech is rather limited at this time. Objective Labs Result Diagrams: 07/28/18 11:00 07/28/18 15:55 Labs: Laboratory Results - last 24 hr 07/27/18 07/27/18 07/27/18 20:23 20:23 20:23 WBC 14.9 H RBC 5.10 Hgb 15.7 Hct 47.3 MCV 92.6 MCH 30.8 MCHC 33.3 RDW 12.9 Plt Count 623 H Neut % (Auto) 79.3 H Lymph % (Auto) 15.7 L Mchenry % (Auto) 4.1 Eos % (Auto) 0.0 L Baso % (Auto) 0.9 Neut # (Auto) 08391 H VBG pH VBG pCO2 VBG pO2 VBG HCO3 VBG Total CO2 VBG O2 Saturation VBG Base Excess Sodium 134 L Potassium 5.0 Chloride 95 L Carbon Dioxide < 5 L* BUN 23 H Creatinine 0.90 Estimated GFR > 60.0 BUN/Creatinine Ratio 25.6 H Glucose 550 H* Hemoglobin A1c Lactate Calcium 9.3 Phosphorus 7.8 H Magnesium 2.2 Total Bilirubin 0.3 AST 16 L ALT 13 L Alkaline Phosphatase 107 Total Protein 7.2 Albumin 4.2 Globulin 3.0 Albumin/Globulin Ratio 1.4 Lipase 131 Procalcitonin 0.10 Nasal Screen MRSA (PCR) Ethyl Alcohol < 10 Ketones 10.15 H Blood Type Antibody Screen 07/27/18 07/27/18 07/27/18 20:23 20:23 20:25 WBC RBC Hgb Hct MCV MCH MCHC RDW Plt Count Neut % (Auto) Lymph % (Auto) Mchenry % (Auto) Eos % (Auto) Baso % (Auto) Neut # (Auto) VBG pH 7.02 L* VBG pCO2 17.7 L VBG pO2 55 H VBG HCO3 5 L VBG Total CO2 5 L VBG O2 Saturation 73 VBG Base Excess -26.0 L Sodium Potassium Chloride Carbon Dioxide BUN Creatinine Estimated GFR BUN/Creatinine Ratio Glucose Hemoglobin A1c Lactate 3.7 H Calcium Phosphorus Magnesium Total Bilirubin AST ALT Alkaline Phosphatase Total Protein Albumin Globulin Albumin/Globulin Ratio Lipase Procalcitonin Nasal Screen MRSA (PCR) Ethyl Alcohol Ketones Blood Type A Negative Antibody Screen Negative 07/27/18 07/27/18 07/27/18 22:14 22:14 23:03 WBC 15.1 H RBC 4.95 Hgb 15.0 Hct 45.2 MCV 91.3 MCH 30.3 MCHC 33.1 RDW 12.8 Plt Count 577 H Neut % (Auto) 89.3 H Lymph % (Auto) 6.4 L Mchenry % (Auto) 3.6 Eos % (Auto) 0.1 L Baso % (Auto) 0.6 Neut # (Auto) 23080 H VBG pH VBG pCO2 VBG pO2 VBG HCO3 VBG Total CO2 VBG O2 Saturation VBG Base Excess Sodium 136 L Potassium 5.4 H Chloride 100 Carbon Dioxide 5 L* BUN 23 H Creatinine 0.90 Estimated GFR > 60.0 BUN/Creatinine Ratio 25.6 H Glucose 541 H* 305 H D Hemoglobin A1c Lactate Calcium 9.1 Phosphorus Magnesium Total Bilirubin AST ALT Alkaline Phosphatase Total Protein Albumin Globulin Albumin/Globulin Ratio Lipase Procalcitonin Nasal Screen MRSA (PCR) Ethyl Alcohol Ketones Blood Type Antibody Screen 07/28/18 07/28/18 07/28/18 00:15 00:55 02:04 WBC RBC Hgb Hct MCV MCH MCHC RDW Plt Count Neut % (Auto) Lymph % (Auto) Mchenry % (Auto) Eos % (Auto) Baso % (Auto) Neut # (Auto) VBG pH VBG pCO2 VBG pO2 VBG HCO3 VBG Total CO2 VBG O2 Saturation VBG Base Excess Sodium 135 L Potassium 4.4 Chloride 104 Carbon Dioxide 11 L BUN 25 H Creatinine 0.80 Estimated GFR > 60.0 BUN/Creatinine Ratio 31.3 H Glucose 264 H Hemoglobin A1c Lactate 2.3 H Calcium 8.7 Phosphorus 3.1 D Magnesium Total Bilirubin AST ALT Alkaline Phosphatase Total Protein Albumin 3.6 Globulin Albumin/Globulin Ratio Lipase Procalcitonin Nasal Screen MRSA (PCR) Negative for mrsa Ethyl Alcohol Ketones Blood Type Antibody Screen 07/28/18 07/28/18 07/28/18 02:04 02:04 02:04 WBC 16.0 H RBC 4.65 Hgb 13.9 Hct 40.1 L MCV 86.2 D MCH 30.0 MCHC 34.7 RDW 12.9 Plt Count 505 H Neut % (Auto) 78.5 H Lymph % (Auto) 12.2 L Mchenry % (Auto) 9.0 Eos % (Auto) 0.0 L Baso % (Auto) 0.3 Neut # (Auto) 02936 H VBG pH VBG pCO2 VBG pO2 VBG HCO3 VBG Total CO2 VBG O2 Saturation VBG Base Excess Sodium Potassium Chloride Carbon Dioxide BUN Creatinine Estimated GFR BUN/Creatinine Ratio Glucose Hemoglobin A1c 11.8 H Lactate Calcium Phosphorus Magnesium 2.2 Total Bilirubin AST ALT Alkaline Phosphatase Total Protein Albumin Globulin Albumin/Globulin Ratio Lipase Procalcitonin Nasal Screen MRSA (PCR) Ethyl Alcohol Ketones Blood Type Antibody Screen 07/28/18 07/28/18 07/28/18 06:03 06:03 11:00 WBC 9.4 RBC 3.96 L Hgb 12.0 L Hct 33.4 L MCV 84.3 MCH 30.4 MCHC 36.1 H RDW 12.6 Plt Count 461 H Neut % (Auto) 67.7 Lymph % (Auto) 22.3 L Mchenry % (Auto) 9.3 Eos % (Auto) 0.5 L Baso % (Auto) 0.2 Neut # (Auto) 6300 VBG pH VBG pCO2 VBG pO2 VBG HCO3 VBG Total CO2 VBG O2 Saturation VBG Base Excess Sodium 131 L Potassium 4.5 Chloride 103 Carbon Dioxide 16 L BUN 22 H Creatinine 0.60 L Estimated GFR > 60.0 BUN/Creatinine Ratio 36.7 H Glucose 243 H Hemoglobin A1c Lactate Calcium 8.2 L Phosphorus 2.2 L Magnesium 2.1 Total Bilirubin AST ALT Alkaline Phosphatase Total Protein Albumin 3.0 L Globulin Albumin/Globulin Ratio Lipase Procalcitonin Nasal Screen MRSA (PCR) Ethyl Alcohol Ketones Blood Type Antibody Screen 07/28/18 07/28/18 07/28/18 11:10 11:10 15:55 WBC RBC Hgb Hct MCV MCH MCHC RDW Plt Count Neut % (Auto) Lymph % (Auto) Mchenry % (Auto) Eos % (Auto) Baso % (Auto) Neut # (Auto) VBG pH VBG pCO2 VBG pO2 VBG HCO3 VBG Total CO2 VBG O2 Saturation VBG Base Excess Sodium 132 L 133 L 133 L Potassium 4.2 4.1 4.0 Chloride 104 103 105 Carbon Dioxide 18 L 19 L 19 L BUN 18 18 14 Creatinine 0.50 L 0.50 L 0.50 L Estimated GFR > 60.0 > 60.0 > 60.0 BUN/Creatinine Ratio 36.0 H 36.0 H 28.0 H Glucose 243 H 239 H 222 H Hemoglobin A1c Lactate Calcium 8.2 L 8.1 L 8.4 Phosphorus 2.4 L 2.4 L 2.3 L Magnesium 2.1 Total Bilirubin AST ALT Alkaline Phosphatase Total Protein Albumin 2.8 L 2.9 L Globulin Albumin/Globulin Ratio Lipase Procalcitonin Nasal Screen MRSA (PCR) Ethyl Alcohol Ketones Blood Type Antibody Screen 07/28/18 07/28/18 15:55 15:55 WBC RBC Hgb Hct MCV MCH MCHC RDW Plt Count Neut % (Auto) Lymph % (Auto) Mchenry % (Auto) Eos % (Auto) Baso % (Auto) Neut # (Auto) VBG pH VBG pCO2 VBG pO2 VBG HCO3 VBG Total CO2 VBG O2 Saturation VBG Base Excess Sodium 133 L Potassium 4.2 Chloride 103 Carbon Dioxide 18 L BUN 15 Creatinine 0.40 L Estimated GFR > 60.0 BUN/Creatinine Ratio 37.5 H Glucose 216 H Hemoglobin A1c Lactate Calcium 8.5 Phosphorus Magnesium 2.2 Total Bilirubin AST ALT Alkaline Phosphatase Total Protein Albumin Globulin Albumin/Globulin Ratio Lipase Procalcitonin Nasal Screen MRSA (PCR) Ethyl Alcohol Ketones Blood Type Antibody Screen Assessment & Plan Plan: Assessment/Plan Narrative: Upper GI bleed with anemia hematocrit of 33. He appears to be coming out of DKA. At some point he probably should have an EGD performed. This can be either as an in or outpatient if he remains stable. His platelet count and hematocrit are fine and he has had no further ongoing bleeding. Continues toe proton pump inhibitors. Avoid nonsteroidal anti-inflammatory agents. Recommend a multiple vitamin and iron.
[2018-07-28 18:19] LABS: Add Manual Diff / Slide Review NO; Basophils Percent Auto 0.6 % (0-2); Eosinophils Percent Auto 0.7 % (2-4); Hemoglobin 12.4 g/dL (13.5-17.5); Lymphocytes Percent Auto 19.1 % (25-40); Mean Corpuscular HGB Conc 34.5 % (30-36); Mean Corpuscular Hemoglobin 29.6 PG (26-34); Mean Corpuscular Volume 85.8 fL (80-100); Neutrophils Absolute Auto 5900 /uL (1500-7000); Neutrophils Percent Auto 68.6 % (50-75); Platelet Count 443 X10^3/uL (150-400); Red Blood Cell Count 4.19 X10^6/uL (4.5-5.9); White Blood Cell Count 8.6 X10^3/uL (4.5-11.0)
[2018-07-28 18:28] LABS: Albumin 2.8 g/dL (3.5-5.0); Blood Urea Nitrogen 14 mg/dL (9-20); Calcium 8.2 mg/dL (8.4-10.2); Carbon Dioxide 18 mmol/L (22-32); Chloride 104 mmol/L (98-107); Estimated Glomerular Filt Rate > 60.0 mL/min (>60); Glucose 248 mg/dL (70-100); HEMOLYSIS < 15 (0-50); Phosphorous 2.7 mg/dL (2.5-4.5); Potassium 4.2 mmol/L (3.4-5.1); Sodium 134 mmol/L (137-145)
[2018-07-28] MEDS: diphenhydrAMINE 50 MG/ML VIAL 25 MG IV (22:25)
[2018-07-28] MEDS: DICLOFENAC 1% GEL 100 GM 1 APPLIC TOP (22:30)
--- NOTE | 2018-07-28 23:32 | PC.NURSE ---
prasad note pt with continued nausea, especially with movement. Medicated with zofran and benadryl. pt had one small emesis of 100 ml, light yellow in color. Pt's HR goes up to 130s when standing at bedside to void. Pt c/o feeling fatigued. pt c/o throat pain, not relieved by Miracle Mouthwash gargle and spit. Pt says pain is lower than area affected by gargling. Medicated with fentanyl.
[2018-07-28 23:56] LABS: Magnesium 2.1 mg/dL (1.6-2.3)
[2018-07-28 23:57] LABS: Albumin 3.4 g/dL (3.5-5.0); Blood Urea Nitrogen 11 mg/dL (9-20); Calcium 8.9 mg/dL (8.4-10.2); Carbon Dioxide 19 mmol/L (22-32); Chloride 104 mmol/L (98-107); Estimated Glomerular Filt Rate > 60.0 mL/min (>60); Glucose 253 mg/dL (70-100); HEMOLYSIS < 15 (0-50); Phosphorous 2.3 mg/dL (2.5-4.5); Potassium 4.1 mmol/L (3.4-5.1); Sodium 134 mmol/L (137-145)
[2018-07-29] VITALS (12 sets, daily range): BP systolic 107–155; BP diastolic 65–99; PULSE 93–107; RESP 12–19; TEMP 36.1–37.2; O2SAT 96–99
[2018-07-29] MEDS: SODIUM CHLORIDE 0.9% 1,000 ML 150 ML IV ×3 (00:27→17:23)
[2018-07-29] MEDS: fentaNYL 100 MCG/2 ML INJ 25 MCG IV ×2 (00:50→04:29)
[2018-07-29] MEDS: ONDANSETRON 4 MG/2 ML INJ IV ×5 (00:51→23:55)
[2018-07-29] MEDS: INSULIN ASPART 100 UNIT/ML INSULN PEN SUBCUT ×4 (00:56→17:23)
[2018-07-29 05:23] LABS: Add Manual Diff / Slide Review NO; Basophils Percent Auto 0.4 % (0-2); Eosinophils Percent Auto 0.5 % (2-4); Hematocrit 34.3 % (41-53); Lymphocytes Percent Auto 25.6 % (25-40); Mean Corpuscular HGB Conc 34.9 % (30-36); Mean Corpuscular Hemoglobin 29.8 PG (26-34); Mean Corpuscular Volume 85.3 fL (80-100); Monocytes Percent Auto 10.4 % (3-14); Neutrophils Absolute Auto 3800 /uL (1500-7000); Neutrophils Percent Auto 63.1 % (50-75); Platelet Count 434 X10^3/uL (150-400); Red Blood Cell Count 4.02 X10^6/uL (4.5-5.9); Red Cell Distribution Width 12.9 % (11.6-14.8); White Blood Cell Count 6.1 X10^3/uL (4.5-11.0)
--- NOTE | 2018-07-29 07:28 | PC.NURSE ---
Pt. tried to use his urinal at bedside and I heard a thump so I went inside his room and found pt. already sitting at bedside. I asked pt. if he fell and he answered yes. I asked pt. of what happened, and answered I don't know but I fell on the floor.. This has never happened to me before, I guess I am just too weak. Pt. stated also that he hit his left shoulder but know sure where and what. I could not see anything on the floor that pt. would have hit against except the siderail. Pt. does have an abrasion to his left shoulder, no bleeding noted. Instructed pt. never to get up OOB without any assistance and informed him that bed alarm will be turned on, pt. agreed. Nurse coordinator Janell called as well as OG Gold and informed of the incident. Called pts. point of contact who is his friend Sharlene Chin but no answer so I left a message. Pt. is now place on high fall risk precautions. Report given to day shift nurse and will continue to monitor pt.
[2018-07-29] MEDS: diphenhydrAMINE 50 MG/ML VIAL 12.5 MG IV (07:35)
[2018-07-29 07:56] LABS: Alanine Aminotransferase 14 IU/L (21-72); Albumin 2.9 g/dL (3.5-5.0); Albumin Globulin Ratio 1.1 (1.0-2.8); Alkaline Phosphatase 73 U/L (38-126); Aspartate Aminotransferase 13 IU/L (17-59); Bilirubin Total 0.3 mg/dL (0.2-1.3); Blood Urea Nitrogen 10 mg/dL (9-20); Calcium 8.1 mg/dL (8.4-10.2); Carbon Dioxide 17 mmol/L (22-32); Chloride 104 mmol/L (98-107); Estimated Glomerular Filt Rate > 60.0 mL/min (>60); Globulin 2.7 g/dL (1.7-4.1); Glucose 248 mg/dL (70-100); HEMOLYSIS < 15 (0-50); Sodium 137 mmol/L (137-145); Total Protein 5.6 g/dL (6.3-8.2)
[2018-07-29] MEDS: MAG HYDROX/ALUMINUM/SIMETH SUS 20 ML, LIDOCAINE VISCOUS 2% 15 ML PO (08:42)
[2018-07-29] MEDS: SUCRALFATE 1 GM/10 ML ORAL SUSP PO ×4 (08:43→20:59)
[2018-07-29] MEDS: FAMOTIDINE 20 MG/50 ML PIGGYBACK 200 MG IV ×3 (08:43→23:46)
--- NOTE | 2018-07-29 08:43 | CM.DANOTE ---
Addendum entered by Meme Arnold LPN 07/29/18 11:13: Case discussed again as planned and with request for consideration of PT order/ok'd by physician and now ordered. Original Note: Addendum entered by Meme Arnold LPN 07/29/18 08:51: Checked in this morning with pt as per plan. He was found wrapped head to toe in blanket, does not rouse as this DCPlanner enters room. WB is updated with DCP contact info. Spoke then with RN Mandi Ascencio and reviewed prasad and night RN notes. Pt did have a fall when standing to use urinal. Reported he felt very weak. Noted that pt has had continuing nausea and getting medication for same. P: follow as POC continues to unfold and discuss again in Team Rounds. Will see if PT is indicated. Original Note: Discharge Planning/Care Management DCP: assessment: case received yesterday and discussed in Team Rounds with hospitalist. Pt is a 43 year old male who admitted yesterday shortly after midnight: 00:01. PCP: not at present: per report has an appt in August to establish care with a PCP: unclear where at this point. Payer: Gerald Wynn Pt lives with his significant other, Sharlene Riveraimtiaz: [phone]: [place] P: POC for treatment DKA was in process with plan for computer engineering technician and RN involvement for diabetic teaching. Check in with pt as triage of caseload allows. CM Discharge Assessment Start: 07/29/18 08:38 Freq: Status: Active Protocol: Document 07/29/18 08:38 ITV (Rec: 07/29/18 08:42 ITV [id number]) Discharge Planning Assessment Advance Directives? No Advance Directives on File No History Provided By Medical Record Prior Living Arrangements Apartment/Condo Household Members significant other Whiteboard Updated in Patient Room with Yes name and ext. # of Truck Technician Review Status In Process Next Review Type Continued Stay Review
[2018-07-29] MEDS: PANTOPRAZOLE 40 MG TABLET PO ×2 (08:44→20:59)
[2018-07-29] MEDS: GABAPENTIN 300 MG CAPSULE PO ×2 (08:44→20:59)
[2018-07-29] MEDS: INSULIN GLARGINE 100 UNIT/ML 3ML PEN 20 UNIT SUBCUT ×2 (08:48→21:06)
[2018-07-29] MEDS: CODEINE/ACETAMINOPHEN 30/300 TABLET 1 TAB PO ×3 (08:52→19:35)
[2018-07-29] MEDS: TRAMADOL 50 MG TABLET PO ×2 (09:12→21:01)
--- NOTE | 2018-07-29 12:28 | PM.PN.1 ---
Subjective Date Patient Seen: 07/29/18 Time Patient Seen: 12:29 Interval history: FEELING NAUSEATED; VOMITED MULTIPLE TIMES THIS AM SPOKE TO NURSING REGARDING PLAN AND MANAGEMENT Exam Vital Signs (past 8 hours): - 07/29/18 05:00 07/29/18 06:00 07/29/18 07:44 Temperature 99 F 98.4 F Pulse Rate 100 H 104 H 101 H Respiratory Rate 17 14 19 Blood Pressure 114/83 107/65 149/89 H Pulse Oximetry 98 98 99 07/29/18 12:00 Temperature 97.0 F L Pulse Rate 103 H Respiratory Rate 19 Blood Pressure 139/86 Pulse Oximetry 97 Oxygen Delivery Method Room Air Oxygen Flow Rate 0 Narrative Exam Narrative: NO ACUTE DISTRESS. PATIENT IS ALERT ORIENTED X3. THIN MALE VITAL SIGNS STABLE HEAD ATRAUMATIC NORMOCEPHALIC NECK : SUPPLE WITHOUT ADENOPATHY NO CAROTID BRUITS EYE: EOMI, PERRLA, NORMAL CONJUNCTIVA; NO JAUNDICE CHEST: REGULAR RATE. NO RUBS. PMI IS NON DISPLACED. NO MURMURS; NORMAL S1-S2 PULMONARY: DECREASED BS OVER THE BASES. MILD BIBASILAR CRACKLES NOTED; NO INCREASED DULLNESS TO PERCUSSION ABDOMEN: SOFT. NONTENDER. NONDISTENDED. BOWEL SOUNDS ARE PRESENT IN ALL 4 QUADRANTS. NO MASS. EXTREMITIES: NO EDEMA.. NO CYANOSIS CLUBBING NOTED. NEURO: CRANIAL NERVES 2-12 GROSSLY INTACT. NO FOCAL NEUROLOGICAL DEFICIT NOTED. MSK: NORMAL RANGE OF MOTION FOR AGE. NO JOINT EFFUSION. SKIN: NORMAL FOR ETHNICITY; NO ECCHYMOSIS. NO LESION. GOOD TURGOR.; NO RASHES : NORMAL EXTERNAL GENITALIA. PSYCH : APPROPRIATE MOOD AND AFFECT. ALERT AWAKE ORIENTED X3 Objective Labs Result Diagrams: 07/29/18 05:03 07/29/18 05:03 Labs: Laboratory Results - last 24 hr 07/28/18 07/28/18 07/28/18 11:10 15:55 15:55 WBC RBC Hgb Hct MCV MCH MCHC RDW Plt Count Neut % (Auto) Lymph % (Auto) [place] % (Auto) Eos % (Auto) Baso % (Auto) Neut # (Auto) Sodium 132 L 133 L Potassium 4.2 4.0 Chloride 104 105 Carbon Dioxide 18 L 19 L BUN 18 14 Creatinine 0.50 L 0.50 L Estimated GFR > 60.0 > 60.0 BUN/Creatinine Ratio 36.0 H 28.0 H Glucose 243 H 222 H Calcium 8.2 L 8.4 Phosphorus 2.4 L 2.3 L Magnesium 2.2 Total Bilirubin AST ALT Alkaline Phosphatase Total Protein Albumin 2.8 L 2.9 L Globulin Albumin/Globulin Ratio 07/28/18 07/28/18 07/28/18 15:55 18:03 18:03 WBC RBC Hgb Hct MCV MCH MCHC RDW Plt Count Neut % (Auto) Lymph % (Auto) [place] % (Auto) Eos % (Auto) Baso % (Auto) Neut # (Auto) Sodium 133 L 134 L Potassium 4.2 4.2 Chloride 103 104 Carbon Dioxide 18 L 18 L BUN 15 14 Creatinine 0.40 L 0.50 L Estimated GFR > 60.0 > 60.0 BUN/Creatinine Ratio 37.5 H 28.0 H Glucose 216 H 248 H Calcium 8.5 8.2 L Phosphorus 2.7 Magnesium 2.0 Total Bilirubin AST ALT Alkaline Phosphatase Total Protein Albumin 2.8 L Globulin Albumin/Globulin Ratio 07/28/18 07/28/18 07/28/18 18:03 23:10 23:10 WBC 8.6 RBC 4.19 L Hgb 12.4 L Hct 36.0 L MCV 85.8 MCH 29.6 MCHC 34.5 RDW 13.0 Plt Count 443 H Neut % (Auto) 68.6 Lymph % (Auto) 19.[address] [place] % (Auto) 11.0 Eos % (Auto) 0.7 L Baso % (Auto) 0.6 Neut # (Auto) 5900 Sodium 134 L Potassium 4.1 Chloride 104 Carbon Dioxide 19 L BUN 11 Creatinine 0.50 L Estimated GFR > 60.0 BUN/Creatinine Ratio 22.0 Glucose 253 H Calcium 8.9 Phosphorus 2.3 L Magnesium 2.1 Total Bilirubin AST ALT Alkaline Phosphatase Total Protein Albumin 3.4 L Globulin Albumin/Globulin Ratio 07/29/18 07/29/18 07/29/18 05:03 05:03 05:03 WBC 6.1 RBC 4.02 L Hgb 12.0 L Hct 34.3 L MCV 85.3 MCH 29.8 MCHC 34.9 RDW 12.9 Plt Count 434 H Neut % (Auto) 63.1 Lymph % (Auto) 25.6 [place] % (Auto) 10.4 Eos % (Auto) 0.5 L Baso % (Auto) 0.4 Neut # (Auto) 3800 Sodium 137 Potassium 4.0 Chloride 104 Carbon Dioxide 17 L BUN 10 Creatinine 0.50 L Estimated GFR > 60.0 BUN/Creatinine Ratio 20.0 Glucose 248 H Calcium 8.1 L Phosphorus Magnesium 2.0 Total Bilirubin 0.3 AST 13 L ALT 14 L Alkaline Phosphatase 73 Total Protein 5.6 L Albumin 2.9 L Globulin 2.7 Albumin/Globulin Ratio 1.1 Assessment & Plan Plan: Assessment/Plan Narrative: IMPRESSIONA ND PLAN DKA; WITH SEVERE METABOLIC ACIDOSIS; DUE TO NON COMPLAINCE LIKELY; OFF INSULIN DRIP; SLIGHT ANION AGAP ACIDOSIS STILL PRESENT ON LABS; WILL TREAT INDICATED; CONT BASAL AND SLIDING SCALE INSULIN; CONT IVF WELL; REPEAT CMP THIS PM AND Q6HR TO REVEAL ANION GAP NAUSEA AND VOMITING; NO BLOOD NOTED; CONT ON CLEARS; ADVANCE EVERETT; PRN MEDS INDICATED POSS ACID REFLUX DISEASE; GI COCKTAIL GIVEN X 1; STARTED ON PROTONIX/CARAFATE AND PEPCID ; THIS SHOULD CONT ON DC FOR 2-3 MONTHS; EVAL WITH GI OUTPATIENT MEDICAL NON COMPLAINCE; EXTENSIVE COUNSELING GIVEN UNCONTROLLED DM; GET HA1C; CONT INSULIN ORDERED ANEMIA OF CD LIKELY; MONITOR FOR NOW THROMBOCYTOSIS ; UNCLEAR CAUSE; MONITOR CLOSELY; IMPROVING MODERATE PROTEIN MALNUTRITION; ? CAUSE; MEGACE ORDERED; ENSURE WITH EACH MEAL; DIETITIAN CONSULTED Quality VTE Deep Vein Thrombosis/Pulmonary Embolism Present on Admission: No
[2018-07-29] MEDS: SODIUM BICARB 8.4% SYRINGE 50 MEQ IV (13:21)
[2018-07-29] MEDS: LIDOCAINE VISCOUS 2% 10 ML, MAG HYDROX/ALUMINUM/SIMETH SUS 10 ML, NYSTATIN SUSP 1,000,0... MM ×2 (14:19→21:12)
[2018-07-29 14:37] LABS: Alanine Aminotransferase 17 IU/L (21-72); Albumin 2.6 g/dL (3.5-5.0); Alkaline Phosphatase 65 U/L (38-126); Aspartate Aminotransferase 9 IU/L (17-59); Bilirubin Total 0.2 mg/dL (0.2-1.3); Blood Urea Nitrogen 6 mg/dL (9-20); Calcium 7.9 mg/dL (8.4-10.2); Carbon Dioxide 24 mmol/L (22-32); Chloride 102 mmol/L (98-107); Estimated Glomerular Filt Rate > 60.0 mL/min (>60); Globulin 2.5 g/dL (1.7-4.1); Glucose 243 mg/dL (70-100); HEMOLYSIS < 15 (0-50); Potassium 3.2 mmol/L (3.4-5.1); Sodium 137 mmol/L (137-145); Total Protein 5.1 g/dL (6.3-8.2)
[2018-07-29 14:38] LABS: Hemoglobin A1C% w Est Avg Glu 11.7 % (4.0-6.0)
--- NOTE | 2018-07-29 15:30 | PT.IIE ---
Current Diagnoses Type 2 diabetes mellitus with ketoacidosis without coma (07/28/18) Surgical History (Last Reviewed 07/28/18 @ 18:13 by Geoffrey Hernandez MD) No pertinent past surgical history (Acute) Medical History (Last Reviewed 07/28/18 @ 18:13 by Geoffrey Hernandez MD) Diabetes (Acute) Physical Therapy Inpatient Evaluation/Re-Eval M1 PT/OT-IP Prior Functional Status Start: 07/29/18 16:31 Freq: NEEDED Status: Active Protocol: Document 07/29/18 15:30 AB (Rec: 07/29/18 16:44 AB [id number]) Medical Review Prior Functional Status Medical History Reviewed Yes Communication able to make needs known Mobility and Gait pt stated that he is independent with all mobilities and ambulation withotu AD Social History Household Members significant other Living Arrangements Apartment/Condo Number of Floors (Floors) One Floor Number of Stairs To Enter/Railing? has a 2 inch step to enter Home Environment High Toilet Tub/Shower Home Equipment Tub Transfer Online Media Director Held Shower Grab Bars In Shower Additional Social History Comment stated that girlfriend works and cannot be with him 07/03 to assist M2 PT-IP Current Condition Start: 07/29/18 16:31 Freq: NEEDED Status: Active Protocol: Document 07/29/18 15:30 AB (Rec: 07/29/18 16:44 AB [id number]) Physical Therapy Current Condition Current Condition Evaluation Date 07/29/18 Treatment Diagnosis DKA; generalized weakness Onset Date 07/28/18 M3 PT-IP Subjective Start: 07/29/18 16:31 Freq: NEEDED Status: Active Protocol: Document 07/29/18 15:30 AB (Rec: 07/29/18 16:44 AB [id number]) Subjective Physical Therapy Visit Type Type Initial Evaluation Visit Start Time 15:30 Visit Stop Time 15:45 Total Visit Minutes 15 Number of FITNESS SPECIALIST Visits 0 Physical Therapy Visit Comments Patient Comments c/o dizziness, nausea (per nurse: blood sugar is 250+) Therapy Pain Assessment Pain When Pain Assessed At Rest Pain Present Pain Present Pain Reported Location throat Intensity 8 Scale Used stated that throat pain is from throwing up M4 PT-IP Mobility and Gait Start: 07/29/18 16:31 Freq: NEEDED Status: Active Protocol: Document 07/29/18 15:30 AB (Rec: 07/29/18 16:44 AB [id number]) PT-Bed Mobility Assessment Supine to Sit Supine to Sit Standby Assistance Sit to Supine Sit to Supine Standby Assistance Scooting Scooting to Edge of Bed Standby Assistance PT-Transfer Assessment Sit to and From Stand Sit to and from Stand Contact Guard Assistance Equipment Transfer Assistive Device Gait Belt Front Wheeled Walker Comments Mobility Comments pt is very impulsive. Gait Assessment Gait Gait Assistance Required: Moderate Assistance Distance (Feet) 7 Able to Maintain Weight Bearing Status Yes During Gait Assistive Devices Assistive Device Gait Belt Front Wheeled Walker Orthotic/Prosthetic Devices or Brace: No Gait Deviations General Gait Pattern Ataxic Decreased Stride Length Decreased Feet Clearance Factors Limiting Gait Function Factors Limiting Gait Function Decreased Activity Tolerance Decreased Strength Poor Balance Poor Safety Awareness Comments Gait Comments pt impulsive and with (+) LOB during ambulation requiring mod A for stability. PT-Balance Assessment Sitting Balance and Reactions Static Sitting Balance Ability Good Dynamic Sitting Balance Ability Fair Standing Balance and Reactions Static Standing Balance Ability Poor Dynamic Standing Balance Ability Poor Device Used FWW M5 PT-IP Objective Assessments Start: 07/29/18 16:31 Freq: NEEDED Status: Active Protocol: Document 07/29/18 15:30 AB (Rec: 07/29/18 16:44 AB [id number]) Orientation Orientation/Cognition Level of Alertness Alert Orientation Name Safety Awareness Decreased Safety Awareness Gross Range of Motion Lower Extremity ROM Assessment Within Functional Limits Strength Lower Extremity Strength Assessment Bilaterally Impaired Knee 4-/5 M6 PT-IP Treatment Start: 07/29/18 16:31 Freq: NEEDED Status: Active Protocol: Document 07/29/18 15:30 AB (Rec: 07/29/18 16:44 AB [id number]) Physical Therapy Treatment Education Education Provided Safety M7 PT-IP Assessment and Plan Start: 07/29/18 16:31 Freq: NEEDED Status: Active Protocol: Document 07/29/18 15:30 AB (Rec: 07/29/18 16:44 AB [id number]) PT Summary Assessment and Plan Potential Rehabilitation Potential Fair Status of Condition at Evaluation Unstable Summary Impairments Pain ROM Strength Balance Coordination Sensation Tone Cognition Bed Mobility Transfers Gait Activity Tolerance Assessment Summary pt with limited activity tolerance with c/o dizziness/ nausea and unable to participate much with PT. pt is also impulsive with decrease safety awareness. d/ c plan depending on progress and available assistance at home. will continue to assess but at this time may require SNF rehab. Goals Bed Mobility Goal Independent Transfer Goal Standby Assistance Front Wheeled Walker Gait Goal Standby Assistance Front Wheel Walker Gait Distance 100 Other Goals up/down one step using FWW CGA Days to Meet Goals 5 Frequency of Treatment Frequency Of Treatment Once a Day Treatment Plan Physical Therapy Treatment Plan Bed Mobility Training Transfer Training Gait Training Therapeutic Exercise Balance Retraining Post Op Education Discharge Planning Hot or Cold Pack Neuromuscular Re-ed Coordination Retraining Manual Therapy Other Recommendations and Next Treatment ambulation Focus Recommendations To Nursing Amount of Assist Needed 1 Person Assist Discharge Recommendations PT Discharge Recommendations Home with 24/7 Assist Home Health SNF Rehab Other Discharge Recommendations SNF vs home with 24/7/ homehealth PT Equipment Needed for Home Before FWW depending on progress Discharge
[2018-07-29 15:41] LABS: Fractionated Inspired Oxygen 0.21; HCO3 ABG 22 mmol/L (22-26); Oxygen Saturation ABG 98 % (95-100); PCO2 ABG 34.1 mmHg (35-45); PO2 ABG 98 mmHg (80-100); TCO2 ABG 23 mmol/L (21-31); pH ABG 7.42 (7.35-7.45)
[2018-07-29] MEDS: LORazepam 2 MG/ML SYRINGE 1 MG IV (16:12)
--- NOTE | 2018-07-29 17:32 | PC.NURSE ---
Addendum entered by Cristy Norwood R.N. 07/29/18 22:55: 2250 - Pt continues to c/o headache, holding head saying Please help me. POLICE AND FIRE DISPATCHER notified, awaiting orders. Original Note: Addendum entered by Cristy Norwood R.N. 07/29/18 21:18: 2100 - Pt continues to c/o headache, 8 of 10, Ultram given. Ice pack provided. One person assist to BSC, Unsteady, generalized weakness, pt needed to move to commode and then stand again to lower pants. Asked pt about activity at home, pt states, I wasn't like this yesterday. What is happening to me? Pt holding head and rocking back and forth. Return to bed. Able to take all po meds. Lantus given per order. Bed alarm on. Call light in reach. Original Note: Addendum entered by Cristy Norwood R.N. 07/29/18 19:04: 1830 - Pt c/o persistent nausea, dizziness with activity. SBP 144 while sitting up. C/o headache and generalized aches. Pt mostly laying in bed with covers pulled up around head. Answers questions appropriately. minimally interactive. Zofran given, reviewed pain medication dose times. Call light in reach. Bed alarm on. Original Note: 1730 - Pt resting in bed. Reports increased nausea with activity. Declines meal at this time. Ativan given. Message left for r/t lab reports.
[2018-07-29] MEDS: POTASSIUM CHLORIDE 40 MEQ in SODIUM CHLORIDE 0.9% 1,000 ML 150 MEQ IV (18:25)
--- NOTE | 2018-07-30 | DI.MRI.S_ITS ---
PROCEDURE: MR HEAD/BRAIN WO/W CON INDICATIONS: brain mass TECHNIQUE: Noncontrast axial T1 spin echo, axial T2 fast spin echo, sagittal and axial FLAIR, coronal T2 fast spin echo, axial gradient echo, axial diffusion and ADC through the brain. After the administration of contrast, axial and coronal 3D VIBE or T1 spin echo with fat saturation through the brain. COMPARISON: [facility], CT, CT HEAD/BRAIN WO CON, 07/30/2018, 9:04. FINDINGS: Image quality: Study is slightly degraded due to due patient motion.. CSF Spaces: Basal cisterns are patent. No extra-axial fluid collections. Ventricles are normal in size and shape. Brain: Again noted is a mixed solid and cystic appearing lesion involving left cerebellum with extensive surrounding vasogenic edema and mass effect on surrounding structures. This lesion measures up to 5.6 x 4 x 2.9 cm in its largest transverse, AP and craniocaudal dimensions. Predominantly peripheral contrast enhancement within this lesion is seen. There is suggestion of mild contrast enhancement within the solid component of this lesion. The brainstem appears normal. Diffusion-weighted images demonstrate no acute ischemic insults. No chronic ischemic insults. Normal intravascular flow voids are present. Skull and face: Calvarial marrow is normal in signal. Orbits appear normal. Sinuses: Sinuses and mastoids appear clear. IMPRESSION: 1. 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 Metastatic lesion cannot be entirely excluded. 2. No other area of abnormal contrast enhancement. No evidence of acute infarction. Dictated by: Jay Day M.D. on 07/30/2018 at 11:52 Approved by: Jay Day M.D. on 07/30/2018 at 12:16
[2018-07-30] MEDS: CODEINE/ACETAMINOPHEN 30/300 TABLET 1 TAB PO (01:29)
--- NOTE | 2018-07-30 01:33 | PC.NURSE ---
Addendum entered by Bridgette Miller R.N. 07/30/18 03:16: Pt extremely impulsive and forgetful with fall precautions. Bed alarm verified active, reinforced safety. Original Note: Addendum entered by Bridgette Miller R.N. 07/30/18 02:11: Headache, throat pain and nausea continue. New orders initiated. Original Note: Pt reports needing to void. Advised pt that I would prefer he use the urinal as opposed to the BSC d/t reported fatigue and weakness by evening shift staff. Pt agreeable to sit while using urinal with SBA. He was barely able to sit up and get his pants somewhat pulled down while sitting before falling backwards onto the bed out of exhaustion. Instructed pt to use urinal lying down and he was agreeable. Voided without difficulty. Continued to have nausea and headache. Medicated per orders. Bed alarm verified active. Curtain and door open. Will monitor closely for safety.
[2018-07-30] MEDS: PROCHLORPERAZINE 10 MG/2 ML VIAL 5 MG IV (02:04)
[2018-07-30] MEDS: KETOROLAC 15 MG/ML VIAL IV (02:04)
[2018-07-30] MEDS: POTASSIUM CHLORIDE 40 MEQ in SODIUM CHLORIDE 0.9% 1,000 ML 150 MEQ IV (02:22)
[2018-07-30 05:15] VITALS: BP 148/92; PULSE 109; RESP 17; TEMP 36.9; O2SAT 97
[2018-07-30 05:22] LABS: Add Manual Diff / Slide Review NO; Basophils Percent Auto 0.5 % (0-2); Eosinophils Percent Auto 0.2 % (2-4); Hematocrit 36.3 % (41-53); Hemoglobin 13.1 g/dL (13.5-17.5); Lymphocytes Percent Auto 29.8 % (25-40); Mean Corpuscular Hemoglobin 30.1 PG (26-34); Mean Corpuscular Volume 83.7 fL (80-100); Monocytes Percent Auto 13.3 % (3-14); Neutrophils Absolute Auto 4000 /uL (1500-7000); Neutrophils Percent Auto 56.2 % (50-75); Platelet Count 460 X10^3/uL (150-400); Red Blood Cell Count 4.34 X10^6/uL (4.5-5.9); Red Cell Distribution Width 12.7 % (11.6-14.8); White Blood Cell Count 7.1 X10^3/uL (4.5-11.0)
[2018-07-30 05:34] LABS: Magnesium 1.7 mg/dL (1.6-2.3)
[2018-07-30 05:59] LABS: Alanine Aminotransferase 19 IU/L (21-72); Albumin 3.2 g/dL (3.5-5.0); Albumin Globulin Ratio 1.2 (1.0-2.8); Alkaline Phosphatase 74 U/L (38-126); Aspartate Aminotransferase 24 IU/L (17-59); Bilirubin Total 0.3 mg/dL (0.2-1.3); Calcium 8.4 mg/dL (8.4-10.2); Carbon Dioxide 31 mmol/L (22-32); Chloride 98 mmol/L (98-107); Estimated Glomerular Filt Rate > 60.0 mL/min (>60); Globulin 2.7 g/dL (1.7-4.1); Glucose 112 mg/dL (70-100); HEMOLYSIS < 15 (0-50); Phosphorous 2.3 mg/dL (2.5-4.5); Potassium 3.2 mmol/L (3.4-5.1); Sodium 141 mmol/L (137-145); Total Protein 5.9 g/dL (6.3-8.2)
[2018-07-30 06:00] LABS: Blood Urea Nitrogen 2 mg/dL (9-20)
[2018-07-30] MEDS: SUCRALFATE 1 GM/10 ML ORAL SUSP PO (06:17)
[2018-07-30] MEDS: PANTOPRAZOLE 40 MG TABLET PO (06:17)
[2018-07-30] MEDS: METOCLOPRAMIDE 10 MG/2 ML INJ IV (06:55)
[2018-07-30 07:38] VITALS: BP 159/92; PULSE 124; RESP 20; TEMP 37.2; O2SAT 98
[2018-07-30] MEDS: ERYTHROMYCIN BASE 500 MG TABLET 250 MG PO (07:57)
[2018-07-30] MEDS: TRAMADOL 50 MG TABLET PO (07:57)
[2018-07-30] MEDS: GABAPENTIN 300 MG CAPSULE PO (08:00)
[2018-07-30] MEDS: KCL 40 MEQ IN NS 1,000 ML 150 MEQ IV (08:10)
--- NOTE | 2018-07-30 08:21 | PC.NURSE ---
Addendum entered by Imelda Messer R.N. 07/30/18 12:48: BP 151/81 HR 115, Ambulance crew here, given 5mg IVP Metoprolol for HR>110. Pt somnolent, but arousable. Pt taken by ambulance crew to [facility], pts belongings given to significant other Sharlene. Original Note: Addendum entered by Imelda Messer R.N. 07/30/18 12:00: Pt back from MRI, blood glucose finger stick 79, pt also c/o headache 04/24. Call to Dr Mijares, orders to change IVF and 0.5mg IV dilaudid for pain. Also gave 10mg IVP decadron. Original Note: Addendum entered by Imelda Messer R.N. 07/30/18 11:06: Patients vape given to Sharlene, patients girlfriend to take home. Original Note: Addendum entered by Imelda Messer R.N. 07/30/18 10:39: Pt taken for MRI. Original Note: Addendum entered by Imelda Messer R.N. 07/30/18 09:51: Pt back from head CT, still c/o headache, given 0.5mg IVP dilaudid. Girlfriend Sharlene at bedside, bed alarm on. Original Note: Addendum entered by Imelda Messer R.N. 07/30/18 09:02: Patient calling out make it go away, complaining of headache. Dr Mijares called and informed of patients headache and ataxic movments and lock of coordination, order for head CT taken. Original Note: Addendum entered by Imelda Messer R.N. 07/30/18 08:41: Pt continues to c/o headache, no relief with tramadol. Given on tab of fioricet. Original Note: Addendum entered by Imelda Messer R.N. 07/30/18 08:23: Pt alert, oriented to place, year, month and situation. Pt restless, able to answer questions appropriately and follow instructions. C/O headache 10/10 given 50mg tramadol. Found vape device in patients pajama pocket, pt states its marijuana in the device and that he only uses before bedtime. Device taken from patient and will be given to patients girlfriend before she leaves. Original Note: Patients girlfriend given wallet off tray table to be taken home.
[2018-07-30] MEDS: INSULIN GLARGINE 100 UNIT/ML 3ML PEN 26 UNIT SUBCUT (08:34)
--- NOTE | 2018-07-30 08:52 | PM.PN.1 ---
Subjective Date Patient Seen: 07/30/18 Time Patient Seen: 06:10 Interval history: STILL WITH SIGNIFICANT NAUSEA VOMITING REPORTED PATIENT NOT BEING ABLE TO EVERETT PO WELL NO FEVER OR CHILLS Exam Vital Signs (past 8 hours): - 07/30/18 05:15 07/30/18 07:38 Temperature 98.4 F 98.9 F Pulse Rate 109 H 124 H Respiratory Rate 17 20 Blood Pressure 148/92 H 159/92 H Pulse Oximetry 97 98 Oxygen Delivery Method Room Air Oxygen Flow Rate 0 Narrative Exam Narrative: NO ACUTE DISTRESS. PATIENT IS ALERT ORIENTED X3. THIN MALE VITAL SIGNS STABLE HEAD ATRAUMATIC NORMOCEPHALIC NECK : SUPPLE WITHOUT ADENOPATHY NO CAROTID BRUITS EYE: EOMI, PERRLA, NORMAL CONJUNCTIVA; NO JAUNDICE CHEST: REGULAR RATE. NO RUBS. PMI IS NON DISPLACED. NO MURMURS; NORMAL S1-S2 PULMONARY: DECREASED BS OVER THE BASES. MILD BIBASILAR CRACKLES NOTED; NO INCREASED DULLNESS TO PERCUSSION ABDOMEN: SOFT. NONTENDER. NONDISTENDED. BOWEL SOUNDS ARE PRESENT IN ALL 4 QUADRANTS. NO MASS. EXTREMITIES: NO EDEMA.. NO CYANOSIS CLUBBING NOTED. NEURO: CRANIAL NERVES 2-12 GROSSLY INTACT. NO FOCAL NEUROLOGICAL DEFICIT NOTED. MSK: NORMAL RANGE OF MOTION FOR AGE. NO JOINT EFFUSION. SKIN: NORMAL FOR ETHNICITY; NO ECCHYMOSIS. NO LESION. GOOD TURGOR.; NO RASHES : NORMAL EXTERNAL GENITALIA. PSYCH : APPROPRIATE MOOD AND AFFECT. ALERT AWAKE ORIENTED X3 Objective Labs Result Diagrams: 07/30/18 05:07 07/30/18 05:07 Labs: Laboratory Results - last 24 hr 07/29/18 07/29/18 07/29/18 14:00 14:00 15:30 WBC RBC Hgb Hct MCV MCH MCHC RDW Plt Count Neut % (Auto) Lymph % (Auto) [place] % (Auto) Eos % (Auto) Baso % (Auto) Neut # (Auto) ABG pH 7.42 ABG pCO2 34.1 L ABG pO2 98 ABG HCO3 22 ABG Total CO2 23 ABG O2 Saturation 98 ABG Base Excess -2.0 FiO2 0.21 Sodium 137 Potassium 3.2 L Chloride 102 Carbon Dioxide 24 BUN 6 L Creatinine 0.40 L Estimated GFR > 60.0 BUN/Creatinine Ratio 15.0 Glucose 243 H Hemoglobin A1c 11.7 H Calcium 7.9 L Phosphorus Magnesium Total Bilirubin 0.2 AST 9 L ALT 17 L Alkaline Phosphatase 65 Total Protein 5.1 L Albumin 2.6 L Globulin 2.5 Albumin/Globulin Ratio 1.0 07/30/18 07/30/18 07/30/18 05:07 05:07 05:07 WBC 7.1 RBC 4.34 L Hgb 13.1 L Hct 36.3 L MCV 83.7 MCH 30.1 MCHC 36.0 RDW 12.7 Plt Count 460 H Neut % (Auto) 56.2 Lymph % (Auto) 29.8 [place] % (Auto) 13.3 Eos % (Auto) 0.2 L Baso % (Auto) 0.5 Neut # (Auto) 4000 ABG pH ABG pCO2 ABG pO2 ABG HCO3 ABG Total CO2 ABG O2 Saturation ABG Base Excess FiO2 Sodium 141 Potassium 3.2 L Chloride 98 Carbon Dioxide 31 BUN 2 L Creatinine 0.50 L Estimated GFR > 60.0 BUN/Creatinine Ratio 4.0 L Glucose 112 H D Hemoglobin A1c Calcium 8.4 Phosphorus 2.3 L Magnesium 1.7 Total Bilirubin 0.3 AST 24 ALT 19 L Alkaline Phosphatase 74 Total Protein 5.9 L Albumin 3.2 L Globulin 2.7 Albumin/Globulin Ratio 1.2 Assessment & Plan Plan: Assessment/Plan Narrative: IMPRESSION AND PLAN NON COMPLAINT MALE WITH DM ADMITTED WITH DKA BEEN HAVING ISSUES WITH NAUSEA AND VOMITING GI BLEED NOT SUSPECTED AT THIS TIME HOWEVER SURGERY IS ON BOARD WILL SPEAK TO SURGERY TODAY REGARDING POSS EGD IN AM SUCPECT GASTROPERESIS DKA; APPEARS RESOLVED; DUE TO NON COMPLIANCE LIKELY; RESTARTED ON BASAL AND SLIDING SCALE INSULIN; CONT IVF FOR NOW; MONITOR CLOSELY POSS GASTROPERESIS RELATED TO UNCONTROLLED DM LIKELY; AND LIKELY THE CAUSE OF HIS NAUSEA AND VOMITING; WILL START ON REGLAN AND ERYTHOMYCIN WHEN ABLE TO EVERETT ORAL; WILL TRY AND SPEAK TO SURGERY REGARDING POSS EGD IN THE AM; NPO; PRN MEDS INDICATED GASTRITIS VS CAROLYNN VS POSS GASTRIC OUTLET OBSTRUCTION; PER CT ABD ON ADM; WILL GET XR ABD THIS AM; NPO W/O EXCEPTION FOR NOW; IVF ; CHANGE MEDS TO IV ROUTE IF POSSIBLE; SURGERY TEAM TO CONSIDER EGD IF INDICTED MEDICAL NON COMPLAINCE; EXTENSIVE COUNSELING GIVEN UNCONTROLLED DM; HA1C = 11.7; CONT INSULIN ORDERED; OUTPATIENT MANAGEMENT ; EXTENSIVE COUNSELING GIVEN; REFER TO CREAM SEPARATOR OPERATOR AND DIETITIAN GENERELIZED WEAKNESS; PT/OT REFERRAL; AMBULATE TID WITH ASSISTANCE IF ABLE ANEMIA OF CD LIKELY; MONITOR FOR NOW THROMBOCYTOSIS ; UNCLEAR CAUSE; MONITOR CLOSELY; IMPROVING MODERATE PROTEIN MALNUTRITION; MEGACE ORDERED; ENSURE WITH EACH MEAL; DIETITIAN CONSULTED DC PER CLINICAL COURSE Quality VTE Deep Vein Thrombosis/Pulmonary Embolism Present on Admission: No
--- NOTE | 2018-07-30 08:55 | DI.RAD.S_ITS ---
PROCEDURE: XR ABDOMEN MIN 2V INDICATIONS: NAUSEA AND VOMITING TECHNIQUE: 2 views of the abdomen were acquired. COMPARISON: [facility], CT, CT ABDOMEN PELVIS W CON, 07/27/2018, 22:10. FINDINGS: Surgical changes and devices: None. Bowel: No pneumoperitoneum. The bowel gas pattern is normal. Soft tissues: No masses; visualized solid organ contours appear normal in size. Calcifications are seen projecting in bilateral renal fossa consistent with previous CT finding of bilateral nonobstructing renal calculi. Bones: No suspicious bony abnormalities. IMPRESSION: No evidence of bowel obstruction no gross free air. Bilateral nonobstructing renal calculi. Dictated by: Jay Day M.D. on 07/30/2018 at 10:35 Approved by: Jay Day M.D. on 07/30/2018 at 10:36
--- NOTE | 2018-07-30 09:34 | DI.CT.S_ITS ---
PROCEDURE: CT HEAD/BRAIN WO CON INDICATIONS: headache, change llevel on consciousness TECHNIQUE: Noncontrast 4.5 mm thick angled axial sections acquired from the foramen magnum to the vertex, with coronal and sagittal reformats. For radiation dose reduction, the following was used: automated exposure control, adjustment of mA and/or kV according to patient size. COMPARISON: None. FINDINGS: Image quality: Excellent. CSF spaces: Basal cisterns are patent. No extra-axial fluid collections. Ventricles are normal in size and shape. Brain: There is a 4.9 x 3.8 x 4.3 cm mixed solid and cystic appearing lesion involving the left cerebellum with moderate surrounding vasogenic edema and mass effect on surrounding structures. No abnormal density is seen in bilateral cerebral hemispheres. No supratentorial midline shift. Mild 6 mm rightward shift is seen in posterior fossa. Travis-white matter interface is normal. Skull and face: Calvarium and visualized facial bones are intact, without suspicious lesions. Sinuses: Visualized sinuses and mastoids are clear. IMPRESSION: 1. 4.9 x 3.8 x 4.3 cm mixed density lesion involving left cerebellum with moderate surrounding vasogenic edema and mass effect on surrounding structures. 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 Infectious process cannot be entirely excluded. This can be further evaluated with MRI of brain without and with contrast. 2. No evidence of acute intracranial bleed. No extra-axial fluid collection. Findings were reported to Dr. Domínguez at 9:35 AM on 07/30/18. Dictated by: Jay Day M.D. on 07/30/2018 at 9:31 Approved by: Jay Day M.D. on 07/30/2018 at 9:40
[2018-07-30] MEDS: POTASSIUM PHOSPHATE 15 MMOL in DEXTROSE 5% IN WATER 250 ML 63.75 ML IV (09:41)
[2018-07-30] MEDS: PANTOPRAZOLE 40 MG VIAL IV (09:42)
[2018-07-30] MEDS: HYDROMORPHONE 1 MG INJ 0.5 MG IV (09:43)
--- NOTE | 2018-07-30 10:05 | CM.DPC ---
DCP: continued: case discussed in Team Rounds just now. Dr. Witt reports new finding of L Cerebellum mass and need for higher level of care under neurology. RN Coordinator Saba and the physician are looking at options for transfer now: [facility] being considered. Will follow prn.
[2018-07-30 10:20] VITALS: BP 169/103; PULSE 126
[2018-07-30] MEDS: LORazepam 2 MG/ML SYRINGE 1 MG IV (10:23)
[2018-07-30 10:32] VITALS: BP 159/100; PULSE 115; O2SAT 97
--- NOTE | 2018-07-30 11:20 | P.DS_ITS ---
History of Present Illness Date Patient Seen: 07/30/18 Time Patient Seen: 11:08 Chief complaint: Vomiting Narrative: Date Patient Seen: 07/28/18 Time Patient Seen: 00:46 Chief complaint: Vomiting Narrative: The patient is a 43-year-old male with PMH significant for DM 2T (oral anti-glycemic and insulin dependent), recurrent DKAs (x2 in the past 1 year), GERD, HARSHAD (not on CPAP), nephrolithiasis (passed, no surgical intervention), osteoarthritis of b/l knee, CURRENT tobacco dependence, and CURRENT cannabis use. Patient is being admitted for DKA, ketoacidosis, and hematemesis. Patient presented to the ED via EMS arrival on 07/27/2018 at 8:21 p.m. out of concern for nausea, vomiting, and diarrhea. On initial presentation complained of 10/10 abdominal pain and had a 500 ml of coffee-ground emesis. Nausea and vomiting initially started on the morning of 07/27/2018. Patient unable to quantify number of episodes; however, does note at least 10 episodes of combined dry heaving and hematemesis. In the past 2 days has been experiencing intermittent palpitations, positional dizziness/lightheadedness, cramping abdominal pain across upper abdominal quadrants, polydipsia, polyuria, polyphasia, and fatigue. Denies fever/chills, change in vision, blurry vision, chest pain, dyspnea (rest or w/ exertion), abdominal distension, flank pain, hematuria, or blood loss per rectum. Patient does have small bouts of diarrhea , which is chronic (not worse from baselien) and mainly occurs after eating. He is on metformin 1000 mg BID. Reports having heartburn. Patient is a current smoker, 1/2 ppd. He admits to using and overusing ibuprofen, reports taking 400 mg at least thrice daily; however, does take it up to 6 times a day. Patient's use of ibuprofen is precipitated by severe bilateral knee pain. Reports having severe arthritis in both knees; however, he [facility] that he can have surgical intervention after the age of 49. In addition, patient uses marijuana for pain up to 4x per day for the past two years. Patient denies current alcohol use. Also, denies prior history of heavy alcohol use or abuse. No prior history of GIB, colonoscopy or endoscopy. Patient was diagnosed with DM 2T 3 years ago. At that time he attempted to manage diabetic disease for a short duration; however, management of diabetic disease was frustrating and cumbersome for the patient and he seized all pharmacotherapy at that time. Recently, in the past year, patient had 2 other episodes of DKA requiring hospitalization, one in October of 2017 and the other in May of 2018 (hospitalized at [facility]). Patient was started on Lantus 20 units daily and metformin 1000 mg BID in October of 2017 and a sliding scale Novolog in May of 2018. Patient reports adherence with Lantus and metformin; however, has been struggling and missing doses of the NovoLog (re: frequently out and does not have a glucometer or medication with him). Patient reports polydipsia (on an average drinking 1 to 1.5 gallons (6-8L ) of water daily), polyuria, and polyphagia. Patient admits to struggling with the diabetic diet, specifically pursuing diet high in bread and pasta. Reports 50 lb weight loss over the past 2 years, currently stable. Patient reports change in vision/blurry vision with hyperglycemia. Has not had an eye exam. Reports having paresthesia of toes. He does not follow with endocrinology. After hospitalization in May, patient did establish himself with the PCP to help with diabetic management, his next appointment is in August. While in route to the ED, received 1L NS bolus. Presenting VS T 97*F, BP 134/96 , HR 137, RR 32, SpO2 96% on RA. Home medications include metformin 1000 mg BID , reglan 20 mg TID, Lantus, and Novolog. ED Presentation / Work-Up WBC 14.9, HGB 15.7, HCT 47.3, PLT 623 NA 134, K 5.0, MG 2.2, CL 95, CA 9.3, PO4 7.8 CO2 <5, AG 33.5, lactate 3.7 GLU 550, serum KETONES 10.15 BUN 23, sCR 0.9, BUN:CR 25.6, GFR > 60 T. BILI 0.3, AST 16, ALT 13, ALK PHOS 107, T. PROTEIN 7.2, ALB 4.2, LIPASE 131 PCT 0.1, ETHYL ALCOHOL < 10 UA glucose (1000 mg/dL), urine ketones (+++, 80), urine specific gravity 1.030, urine protein +30 Venous pH 7.02, pCO2 17.7, pO2 55, HCO2 5 CT A/P - revealed circumferential wall thickening of the distal esophagus, may be due to esophagitis - stomach is somewhat distended with fluid contents, HU value of 6, concern for gastroparesis vs. early / partial gastric outlet obstruction - fatty infiltration of liver - non-obstructing bilateral renal calculi In ED received - NS, 1L bolus, followed by 150 ml/hr maintenance infusion - Protonis, 80 mg IV bolus, followed by a Pronix drip - Insulin, titrating as clinically indicated Discharge Providers Date of admission: 07/28/18 00:01 Consults: 07/28/18 00:26 Consult to Dietitian, Adult Routine Comment: Reason For Exam: diabetes education AND diabetic diet Consult to Discharge Planning Routine Comment: Consult to Physician Routine Comment: Consulting Provider: Geoffrey Hernandez Reason for consultation: Hematemesis / GIB, questionable SBO Has provider been notified: Yes Consult to Respiratory Therapy Evaluate & Treat Comment: Physician Instructions: Evaluate and treat 07/29/18 11:12 Consult to Physical Therapy Evaluate & Treat Comment: Physician Instructions: Evaluate and Treat Discharge provider: Betina Domínguez DO Discharge Date: 07/30/18 Summary Discharge Diagnosis: BRAIN MASS/TUMOR; POSS MALIGNANT DISEASE UNCONTROLLED DM2 CACHEXIA TOBACCO ABUSE GASTRITIS; GERD Hospital Course: - PATIENT CAME TO THE ED INCLUDING VISUAL CHANGES, NAUSEA, VOMITING. - PATIENT SEEN FOR S/S OF DKA AND WAS ADMITTED TO THE ICU ON AN INSULIN DRIP - HE WAS ALSO REPORTED TO BE VERY NAUSEATED AND WEAK/TIRED - HE REPORTED WT LOSS FOR LAST FEW MONTHS - AFTER 24 HRS, HIS DKA RESOLVED WITH TREATMENT AND HE WAS RESTARTED ON ORAL INTAKE WELL BASAL/SLIDING SCALE INSULIN - HOWEVER, HE CONTINUE TO HAVE DIFFICULTIES RETAINING FOOD AND FLUIDS - DURING AMBULATION, HE WAS NOTICED THAT PATIENT WAS WOBBLY AND UNSTEADY ON HIS FEET - HE ALSO REPORTED THE VISION CHANGES WELL NUMBNESS TO HIS LOWER EXT - CT HEAD ORDERED AND PATIENT FOUND TO HAVE A MASS IN THE LEFT CEREBELLUM - PATIENT WILL BE GETTING A MRI TODAY WELL - IV DECADRON GIVEN X 1 - SPOKE TO ATTENDING AT [facility] AND PATIENT WILL BE TRANSFERED TODAY Status at Discharge Cognitive/behavioral status at discharge: MENTALLY AT BASELINE Functional status at discharge: bed bound Overall status at discharge: patient is not back to baseline Time Spent with Patient Greater than 30 minutes Exam Vital Signs (past 8 hours): - 07/30/18 05:15 07/30/18 07:38 07/30/18 10:20 Temperature 98.4 F 98.9 F Pulse Rate 109 H 124 H 126 H Respiratory Rate 17 20 Blood Pressure 148/92 H 159/92 H 169/103 H Pulse Oximetry 97 98 07/30/18 10:32 Temperature Pulse Rate 115 H Respiratory Rate Blood Pressure 159/100 H Pulse Oximetry 97 Oxygen Delivery Method Room Air Oxygen Flow Rate 0 Narrative Exam Narrative: NO ACUTE DISTRESS. PATIENT IS ALERT ORIENTED X3. THIN MALE VITAL SIGNS STABLE HEAD ATRAUMATIC NORMOCEPHALIC NECK : SUPPLE WITHOUT ADENOPATHY NO CAROTID BRUITS EYE: EOMI, PERRLA, NORMAL CONJUNCTIVA; NO JAUNDICE CHEST: REGULAR RATE. NO RUBS. PMI IS NON DISPLACED. NO MURMURS; NORMAL S1- S2 PULMONARY: DECREASED BS OVER THE BASES. MILD BIBASILAR CRACKLES NOTED; NO INCREASED DULLNESS TO PERCUSSION ABDOMEN: SOFT. NONTENDER. NONDISTENDED. BOWEL SOUNDS ARE PRESENT IN ALL 4 QUADRANTS. NO MASS. EXTREMITIES: NO EDEMA.. NO CYANOSIS CLUBBING NOTED. NEURO: CRANIAL NERVES 2-12 GROSSLY INTACT. NO FOCAL NEUROLOGICAL DEFICIT NOTED. MSK: NORMAL RANGE OF MOTION FOR AGE. NO JOINT EFFUSION. POOR GAIT; STRENGTH 3- 5 BLE SKIN: NORMAL FOR ETHNICITY; NO ECCHYMOSIS. NO LESION. GOOD TURGOR.; NO RASHES : NORMAL EXTERNAL GENITALIA. PSYCH : APPROPRIATE MOOD AND AFFECT. ALERT AWAKE ORIENTED X3 Objective Labs Result Diagrams: 07/30/18 05:07 07/30/18 05:07 Labs: Laboratory Results - last 24 hr 07/29/18 07/29/18 07/29/18 14:00 14:00 15:30 WBC RBC Hgb Hct MCV MCH MCHC RDW Plt Count Neut % (Auto) Lymph % (Auto) Ness % (Auto) Eos % (Auto) Baso % (Auto) Neut # (Auto) ABG pH 7.42 ABG pCO2 34.1 L ABG pO2 98 ABG HCO3 22 ABG Total CO2 23 ABG O2 Saturation 98 ABG Base Excess -2.0 FiO2 0.21 Sodium 137 Potassium 3.2 L Chloride 102 Carbon Dioxide 24 BUN 6 L Creatinine 0.40 L Estimated GFR > 60.0 BUN/Creatinine Ratio 15.0 Glucose 243 H Hemoglobin A1c 11.7 H Calcium 7.9 L Phosphorus Magnesium Total Bilirubin 0.2 AST 9 L ALT 17 L Alkaline Phosphatase 65 Total Protein 5.1 L Albumin 2.6 L Globulin 2.5 Albumin/Globulin Ratio 1.0 07/30/18 07/30/18 07/30/18 05:07 05:07 05:07 WBC 7.1 RBC 4.34 L Hgb 13.1 L Hct 36.3 L MCV 83.7 MCH 30.1 MCHC 36.0 RDW 12.7 Plt Count 460 H Neut % (Auto) 56.2 Lymph % (Auto) 29.8 Ness % (Auto) 13.3 Eos % (Auto) 0.2 L Baso % (Auto) 0.5 Neut # (Auto) 4000 ABG pH ABG pCO2 ABG pO2 ABG HCO3 ABG Total CO2 ABG O2 Saturation ABG Base Excess FiO2 Sodium 141 Potassium 3.2 L Chloride 98 Carbon Dioxide 31 BUN 2 L Creatinine 0.50 L Estimated GFR > 60.0 BUN/Creatinine Ratio 4.0 L Glucose 112 H D Hemoglobin A1c Calcium 8.4 Phosphorus 2.3 L Magnesium 1.7 Total Bilirubin 0.3 AST 24 ALT 19 L Alkaline Phosphatase 74 Total Protein 5.9 L Albumin 3.2 L Globulin 2.7 Albumin/Globulin Ratio 1.2 Discharge Plan Discharge Plan Transfer to: [facility] Transportation: Ambulance Discharge Med Rec/Prescriptions Prescriptions: No Action metformin 1,000 mg Tablet 1,000 mg PO BID RF: 0 metoclopramide HCl 10 mg Tablet 20 mg PO QACHS RF: 0 insulin aspart U-100 [Novolog Flexpen U-100 Insulin] 100 unit/mL insulin pen See Label Instructions .ROUTE .COMPLEX RF: 0 insulin glargine [Lantus Solostar U-100 Insulin] 100 unit/mL (3 mL) insulin pen 20 units subcut DAILY RF: 0 ibuprofen 400 mg Tablet 400 mg PO Q4-6H PRN (Reason: Muscle Pain) RF: 0 Discharge Orders: Discharge (Order); Ordered 07/30/18 Ordered By: Betina Domínguez Discharge Data Attending Provider: Dell Gold Admit Date/Time: 12/14/18 00:01 Quality VTE Deep Vein Thrombosis/Pulmonary Embolism Present on Admission: No
[2018-07-30] MEDS: DEXAMETHASONE 10 MG/ML VIAL IV (11:30)
--- NOTE | 2018-07-30 11:34 | PT.IPTN ---
Current Diagnoses Type 2 diabetes mellitus with ketoacidosis without coma (07/28/18) Physical Therapy Treatment Note M2 PT-IP Current Condition Start: 07/29/18 16:31 Freq: NEEDED Status: Active Protocol: Document 07/29/18 15:30 AB (Rec: 07/29/18 16:44 AB [id number]) Physical Therapy Current Condition Current Condition Evaluation Date 07/29/18 Treatment Diagnosis DKA; generalized weakness Onset Date 07/28/18 M3 PT-IP Subjective Start: 07/29/18 16:31 Freq: NEEDED Status: Active Protocol: Document 07/30/18 10:26 CLB (Rec: 07/30/18 11:34 CLB [id number]) Subjective Physical Therapy Visit Type Type Patient Unavailable Notes RN requested pt not be seen planning for DC.
[2018-07-30] MEDS: DEXTROSE 5%-0.45NS W/KCL 20MEQ 1,000 ML 75 MEQ IV (11:52)
[2018-07-30 12:15] VITALS: BP 153/81; PULSE 113; RESP 20; O2SAT 97
[2018-07-30] MEDS: METOPROLOL TARTRATE 5 MG/5 ML INJ IV (12:42)
== END 2018-07-30 12:50 | disposition short-term general hospital (02) | DRG 637 ==
LOC: ED 21:51 → ICU 07-28 06:55
PROVIDERS: Hospitalist; Admitting Provider Nurse Practitioner Gerontology; Emergency Provider Emergency Medicine; Visit Provider Nurse Practitioner Gerontology
DX: E11.10 Type 2 diabetes mellitus with ketoacidosis without coma (principal); K29.61 Other gastritis with bleeding; E44.0 Moderate protein-calorie malnutrition; Z68.1 Body mass index [BMI] 19.9 or less, adult; C71.6 Malignant neoplasm of cerebellum; Z79.4 Long term (current) use of insulin; M17.0 Bilateral primary osteoarthritis of knee; G72.89 Other specified myopathies; F17.210 Nicotine dependence, cigarettes, uncomplicated; F12.90 Cannabis use, unspecified, uncomplicated; E11.42 Type 2 diabetes mellitus with diabetic polyneuropathy
CPT/HCPCS: 36415; 36600; 70450; 70553; 74019; 74177; 80048; 80053; 80069; 80320; 81003; 82009; 82805; 82947; 82962; 83036; 83605; 83690; 83735; 84100; 84145; 85025; 86850; 86900; 86901; 87070; 87147; 87797; 96365; 96366; 96368; 96375; 97163; 99252; 99285; 99406; A9579; C9113; J0780; J1100; J1170; J1200; J1885; J2060; J2270; J2405; J2765; J3010; J3480; Q9967